=== PATIENT | male | born 1980 | race Caucasian/White ===

== ENCOUNTER 2020-09-13 12:18 | Outpatient (REF) | payer BC, SELFPAY ==
[2020-09-13 12:39] LABS: MANUAL DIFF FLAG NO
[2020-09-13 12:43] LABS: Basophils Percent Auto 0.3 % (0-2); Eosinophils Absolute Auto 0.3 X10*3/uL (0.0-0.4); Eosinophils Percent Auto 2.9 % (0-4); Hematocrit 37.3 % (42-52); Hemoglobin 11.9 g/dl (14.0-18.0); Imm Gran Abs Auto 0.04 X10*3/uL (0.00-0.03); Imm Gran Pct Auto 0.4 % (0.0-0.4); Lymphocytes Absolute Auto 1.1 X10*3/uL (1.2-4.9); Lymphocytes Percent Auto 11.7 % (20-40); Mean Corpuscular HGB Conc 31.9 g/dl (31.0-36.0); Mean Corpuscular Hemoglobin 25.9 pg (27.0-33.0); Mean Corpuscular Volume 81.3 fL (80-98); Mean Platelet Volume 9.5 fL (9.4-12.4); Monocytes Absolute Auto 0.7 X10*3/uL (0.1-1.2); Monocytes Percent Auto 7.4 % (2-11); Neutrophils Absolute Auto 7.1 X10*3/uL (2.0-8.3); Neutrophils Percent Auto 77.3 % (45-73); Platelet Count 355 X10*3/uL (160-400); Red Blood Count 4.59 X10*6/uL (4.60-5.80); Red Cell Distribution Width 13.4 % (11.0-16.0); White Blood Count 9.2 X10*3/uL (4.8-10.8)
[2020-09-13 13:34] LABS: Alanine Aminotransferase 12 U/L (0-40); Albumin Level 3.9 g/dL (3.5-5.0); Alkaline Phosphatase 83 U/L (39-117); Anion Gap 12 (12-20); Aspartate Amino Transferase 12 U/L (5-37); Bilirubin Total 0.4 mg/dL (0.0-1.0); Blood Urea Nitrogen 12 mg/dL (9-16); C Reactive Protein 7.13 mg/dL (< or = 0.50); Calcium 8.5 mg/dL (8.4-10.2); Carbon Dioxide 29 mmol/L (22-29); Chloride 101 mmol/L (96-108); Estimated Glomerular Filt Rate > 60; Glucose Random 91 mg/dL (60-115); Potassium 3.9 mmol/L (3.3-5.1); Sodium 138 mmol/L (135-145); Total Protein 6.4 g/dL (6.5-8.0)
[2020-09-13 13:55] LABS: Ferritin 27 ng/mL (20-250)
== END 2020-09-13 12:19 | disposition home or self-care (01) ==
LOC: HO.LAB 12:18
PROVIDERS: Visit Provider Internal Medicine Gastroenterology
DX: K51.90 Ulcerative colitis, unspecified, without complications (principal); D50.9 Iron deficiency anemia, unspecified
CPT/HCPCS: 36415; 80053; 82306; 82728; 85025; 86140

== ENCOUNTER 2020-09-17 10:33 | Outpatient (REF) | payer BC, SELFPAY ==
[2020-09-17 11:16] LABS: Leukocytes Stool Qualitative FEW: < 2/OIF (NEGATIVE)
[2020-09-17 13:03] LABS: CDIFF Ag Negative (Negative)
[2020-09-17 13:04] LABS: CDIFF Internal ctrl Dots and bkg OK (V); CDiff Toxin Negative (Negative)
[2020-09-22 02:42] LABS: Calprotectin, Fecal 4500 mcg/g
== END 2020-09-17 10:34 | disposition home or self-care (01) ==
LOC: HO.LNP 10:33
PROVIDERS: Visit Provider Internal Medicine Gastroenterology
DX: D50.9 Iron deficiency anemia, unspecified (principal); K51.90 Ulcerative colitis, unspecified, without complications
CPT/HCPCS: 83993; 87045; 87046; 87324; 87449; 89055

== ENCOUNTER → 2020-10-02 13:57 | Outpatient (BNVA) | payer BC, SELFPAY | PROVIDERS: Visit Provider Internal Medicine Gastroenterology ==

== ENCOUNTER 2020-10-06 09:43 | Outpatient (REF) | payer BC, SELFPAY ==
[2020-10-06 10:29] LABS: MANUAL DIFF FLAG NO
[2020-10-06 10:34] LABS: Basophils Percent Auto 0.2 % (0-2); Eosinophils Absolute Auto 0.1 X10*3/uL (0.0-0.4); Eosinophils Percent Auto 0.6 % (0-4); Hematocrit 31.9 % (42-52); Hemoglobin 9.7 g/dl (14.0-18.0); Imm Gran Abs Auto 0.11 X10*3/uL (0.00-0.03); Imm Gran Pct Auto 0.9 % (0.0-0.4); Lymphocytes Absolute Auto 1.1 X10*3/uL (1.2-4.9); Lymphocytes Percent Auto 9.5 % (20-40); Mean Corpuscular HGB Conc 30.4 g/dl (31.0-36.0); Mean Corpuscular Hemoglobin 24.4 pg (27.0-33.0); Mean Corpuscular Volume 80.2 fL (80-98); Mean Platelet Volume 8.7 fL (9.4-12.4); Monocytes Absolute Auto 0.7 X10*3/uL (0.1-1.2); Monocytes Percent Auto 6.2 % (2-11); NRBC Pct Auto 0.2 /100WBC (0.0-0.2); Neutrophils Absolute Auto 9.7 X10*3/uL (2.0-8.3); Neutrophils Percent Auto 82.6 % (45-73); Platelet Count 644 X10*3/uL (160-400); Red Blood Count 3.98 X10*6/uL (4.60-5.80); Red Cell Distribution Width 13.2 % (11.0-16.0); White Blood Count 11.7 X10*3/uL (4.8-10.8)
[2020-10-06 11:01] LABS: Alanine Aminotransferase 51 U/L (0-40); Albumin Level 3.4 g/dL (3.5-5.0); Alkaline Phosphatase 69 U/L (39-117); Anion Gap 14 (12-20); Aspartate Amino Transferase 17 U/L (5-37); Bilirubin Total 0.6 mg/dL (0.0-1.0); Blood Urea Nitrogen 17 mg/dL (9-16); C Reactive Protein 8.64 mg/dL (< or = 0.50); Calcium 8.7 mg/dL (8.4-10.2); Carbon Dioxide 32 mmol/L (22-29); Chloride 94 mmol/L (96-108); Estimated Glomerular Filt Rate > 60; Glucose Random 127 mg/dL (60-115); Lipase 22 U/L (8-78); Potassium 4.4 mmol/L (3.3-5.1); Sodium 136 mmol/L (135-145); Total Protein 6.2 g/dL (6.5-8.0)
[2020-10-06 11:20] LABS: Ferritin 28 ng/mL (20-250)
== END 2020-10-06 09:44 | disposition home or self-care (01) ==
LOC: HO.LAB 09:43
PROVIDERS: Visit Provider Internal Medicine Gastroenterology
DX: K51.90 Ulcerative colitis, unspecified, without complications (principal); R11.10 Vomiting, unspecified; D50.9 Iron deficiency anemia, unspecified
CPT/HCPCS: 36415; 80053; 82728; 83690; 85025; 86140

== ENCOUNTER 2020-10-10 09:34 | Outpatient (REF) | payer BC, SELFPAY ==
--- NOTE | ~2020-10-10 | MR_ITS ---
EXAMINATION: MR ABDOMEN WITHOUT AND WITH CONTRAST MR PELVIS WITHOUT AND WITH CONTRAST CLINICAL INFORMATION: K51.90 - Ulcerative colitis, unspecified, without complication. COMPARISON: CT abdomen and pelvis with contrast 04/19/2016 TECHNIQUE: MR abdomen and MR pelvis are performed without and with use of 7.5 mL intravenous Gadavist gadolinium contrast. Imaging is performed in 3 planes. Patient had 1.5 L of oral Breeza prior to imaging. FINDINGS: LUNG BASES: The visualized lung bases are unremarkable. LIVER, GALLBLADDER, AND BILIARY TREE: The liver is normal in size and smooth in contour. The parenchyma is normal in signal. There is no signal loss on out of phase imaging to suggest hepatic steatosis. There are 2 small cysts present, larger 1.2 cm segment 6 right lobe. There is also a subcentimeter cyst segment 7. There is no enhancing lesion. The gallbladder is unremarkable with no evidence of gallbladder wall thickening, or obvious pericholecystic inflammatory changes. PANCREAS: Unremarkable. SPLEEN: Normal. ADRENAL GLANDS: Normal. KIDNEYS AND URETERS: The kidneys are normal in size and contour and enhance symmetrically. There is no hydronephrosis or perinephric stranding. Incidental punctate cysts well under 1 cm are present left upper and lower pole and right upper pole. GASTROINTESTINAL TRACT: Evaluation limited by respiratory motion artifact. There is no bowel obstruction. Small bowel appears normal in wall thickness and attenuation and with normal enhancement. There is no visible thickening terminal ileum. The appendix is not well visualized. There is no distended appendix or focal inflammatory changes right lower quadrant. No ascites or fluid collection. The colon shows circumferential wall thickening most prominently involving the cecum and proximal ascending colon. Lesser thickening involves the ascending colon, hepatic flexure, and transverse colon. The distal transverse colon and sigmoid flexure and descending colon are nondistended and difficult to assess. There is likely mild wall thickening in these areas. There is some muscular hypertrophy in the region of the sigmoid. Suspect mild circumferential wall thickening at the rectosigmoid. The colon shows normal T2 signal with no wall edema and no edema in the adjacent mesentery. No ascites or fluid collection. No stenotic segment. The colon enhances to greater degree than the small bowel with mild hyperenhancement. No skip areas. There is no vasa recta engorgement or soler sign. ABDOMINAL WALL: No significant hernia is appreciated. LYMPH NODES: No lymphadenopathy. VASCULAR: Unremarkable. PELVIS: No additional findings. OSSEOUS STRUCTURES: Marrow signal normal. MR/MR abdomen wo/w con IMPRESSION: 1. Mild circumferential wall thickening colon, greatest cecum and ascending colon. Mild hyperenhancement following contrast. No T2 signal in the wall or adjacent mesentery. No focal stenotic segment or obstruction. 2. Small bowel and terminal ileum unremarkable. 3. No ascites or fluid collection. 4. Small hepatic cysts 1.2 cm and under 1 cm, respectively. No steatosis appreciated.
== END 2020-10-10 09:35 | disposition home or self-care (01) ==
LOC: HO.MRI 09:34
PROVIDERS: Visit Provider Internal Medicine Gastroenterology
DX: K51.90 Ulcerative colitis, unspecified, without complications (principal)
CPT/HCPCS: 72197; 74183; A9585

== ENCOUNTER 2020-10-17 09:14 | Outpatient (REF) | payer BC, SELFPAY ==
[2020-10-17 10:07] LABS: MANUAL DIFF FLAG NO
[2020-10-17 10:19] LABS: Basophils Percent Auto 0.2 % (0-2); Eosinophils Percent Auto 0.1 % (0-4); Hematocrit 30.3 % (42-52); Hemoglobin 8.8 g/dl (14.0-18.0); Imm Gran Pct Auto 0.8 % (0.0-0.4); Lymphocytes Absolute Auto 1.1 X10*3/uL (1.2-4.9); Lymphocytes Percent Auto 8.7 % (20-40); Mean Corpuscular Hemoglobin 22.9 pg (27.0-33.0); Mean Corpuscular Volume 78.7 fL (80-98); Mean Platelet Volume 8.8 fL (9.4-12.4); Monocytes Absolute Auto 0.7 X10*3/uL (0.1-1.2); Monocytes Percent Auto 5.5 % (2-11); Neutrophils Percent Auto 84.7 % (45-73); Platelet Count 629 X10*3/uL (160-400); Red Blood Count 3.85 X10*6/uL (4.60-5.80); Red Cell Distribution Width 13.7 % (11.0-16.0)
[2020-10-17 10:47] LABS: Alanine Aminotransferase 63 U/L (0-40); Albumin Level 3.3 g/dL (3.5-5.0); Alkaline Phosphatase 70 U/L (39-117); Anion Gap 19 (12-20); Aspartate Amino Transferase 15 U/L (5-37); Bilirubin Total 0.6 mg/dL (0.0-1.0); Blood Urea Nitrogen 13 mg/dL (9-16); C Reactive Protein 7.99 mg/dL (< or = 0.50); Calcium 8.5 mg/dL (8.4-10.2); Carbon Dioxide 28 mmol/L (22-29); Chloride 95 mmol/L (96-108); Estimated Glomerular Filt Rate > 60; Glucose Random 190 mg/dL (60-115); Potassium 4.2 mmol/L (3.3-5.1); Sodium 138 mmol/L (135-145); Total Protein 6.1 g/dL (6.5-8.0)
== END 2020-10-17 09:15 | disposition home or self-care (01) ==
LOC: HO.LAB 09:14
PROVIDERS: Visit Provider Internal Medicine Gastroenterology
DX: K51.90 Ulcerative colitis, unspecified, without complications (principal); D50.9 Iron deficiency anemia, unspecified
CPT/HCPCS: 36415; 80053; 85025; 86140

== ENCOUNTER 2020-10-19 10:38 | Outpatient (REF) | payer BC, SELFPAY ==
[2020-10-19 11:28] LABS: Hematocrit 26.9 % (42-52); Mean Corpuscular HGB Conc 29.7 g/dl (31.0-36.0); Mean Corpuscular Hemoglobin 23.3 pg (27.0-33.0); Mean Corpuscular Volume 78.4 fL (80-98); Mean Platelet Volume 8.9 fL (9.4-12.4); Platelet Count 554 X10*3/uL (160-400); Red Blood Count 3.43 X10*6/uL (4.60-5.80); Red Cell Distribution Width 13.8 % (11.0-16.0); White Blood Count 10.3 X10*3/uL (4.8-10.8)
[2020-10-19 11:58] LABS: Alanine Aminotransferase 58 U/L (0-40); Albumin Level 3.2 g/dL (3.5-5.0); Alkaline Phosphatase 65 U/L (39-117); Anion Gap 14 (12-20); Aspartate Amino Transferase 17 U/L (5-37); Bilirubin Total 0.2 mg/dL (0.0-1.0); Blood Urea Nitrogen 13 mg/dL (9-16); Calcium 8.3 mg/dL (8.4-10.2); Carbon Dioxide 29 mmol/L (22-29); Chloride 96 mmol/L (96-108); Estimated Glomerular Filt Rate > 60; Glucose Random 118 mg/dL (60-115); Iron 16 mcg/dL (45-160); Percent Iron Saturation 6 % (15-50); Potassium 3.9 mmol/L (3.3-5.1); Sodium 135 mmol/L (135-145); Total Iron Binding Capacity 281 mcg/dL (228-428); Total Protein 5.7 g/dL (6.5-8.0); Unsaturated Iron Binding 265 ug/dL
[2020-10-19 12:48] LABS: Band Neutrophils Percent 20 % (3-5); Eosinophils Absolute Manual 0.1 X10*3/UL (0.0-0.8); Eosinophils Percent Manual 1 % (0-4); Lymphocytes Absolute Manual 1.2 X10*3/uL (0.6-4.8); Lymphocytes Percent Manual 12 % (20-40); Monocytes Absolute Manual 0.6 X10*3/uL (0.0-1.2); Monocytes Percent Manual 6 % (2-11); Neutrophils Absolute Manual 8.3 X10*3/uL (2.2-7.9); Neutrophils Percent Manual 61 % (45-73); Platelet Estimate INCREASED (NORMAL)
[2020-10-19 12:49] LABS: RBC Morphology NOTED
[2020-10-19 12:50] LABS: Acanthocytes 1+ (0-2) /OIF; Hypochromasia 1+ (5-14) /OIF; Microcytosis 1+ (5-14) /OIF; Ovalocytes 1+ (5-14) /OIF
[2020-10-19 12:51] LABS: Platelet Morphology Comment NORM; Polychromasia 1+ (0-2) /OIF
[2020-10-21 18:06] LABS: TS Negative Control Passed; TS Panel A 0; TS Panel B 0; TS Positive Control Passed; TSpotTB Negative (SeeBelow)
== END 2020-10-19 10:39 | disposition home or self-care (01) ==
LOC: HO.LAB 10:38
PROVIDERS: Visit Provider Internal Medicine Gastroenterology
DX: K51.90 Ulcerative colitis, unspecified, without complications (principal); D50.9 Iron deficiency anemia, unspecified
CPT/HCPCS: 36415; 80053; 83540; 85007; 85027; 86481

== ENCOUNTER 2020-10-30 12:13 | Outpatient (REF) | payer BC, SELFPAY ==
--- NOTE | 2020-10-30 17:04 | PM.GIPN ---
Subjective Subjective Date of Service: 10/30/20 Interval History: 40 yo male who is here for his initial Remicade infusion. He has an ongoing severely active flare of his ULCERATIVE COLITIS. He is anemic. He is on steroids 20mg BID. He thinks he is feeling somewhat better. His appetite is very good. He is no longer seeing rectal bleeding. Most of his diarrhea is @ night Physical Exam Vital Signs: Vital Signs: TEMP: 100.9, P-114, RESP-18, BP-1O5/62 Const: General: alert and ill appearing Nutritional Appearance: thin (has lost 20-30 pounds) Orientation/consciousness: patient oriented x3 Resp: Effort & Inspection: normal respiratory effort and no cough Cardio: Rate: tachycardic Rhythm: regular rhythm Heart sounds: no murmurs GI: Palpation (GI): Soft to palpation, nontender, no guarding, no masses and No Ascites present Skin: General skin exam: no rashes or lesions noted and pallor Neuro: General: patient oriented x3 Extrem: General: No edema Psych: Mental Status: mental status grossly normal Speech and movement: Normal speech and movement present Thought content: Normal thought content present Objective Data Labs Labs: Reminder Stool ? in 2016 was ?+for E.coli.--State said no. IBD--PROM not c/ either Crohn's or UC Flare with Calprotectin>2000--11/10/2018--not being consistent with Lialda dosing. by 11/2918--full flare.(Weight down 161.8) NOW 10/19/20-H&H: 8.0/26.9--iron sat-6% 10/17/20 CRP--7.99; Albumin 3.3-->3.2 on Limited colo 05/09/16--Moderate to marked active chronic colitis; features not specific to etiology Imaging IMPRESSION: 1. Mild circumferential wall thickening colon, greatest cecum and ascending colon. Mild hyperenhancement following contrast. No T2 signal in the wall or adjacent mesentery. No focal stenotic segment or obstruction. 2. Small bowel and terminal ileum unremarkable.: Radiologist's impression: MRE -- 10/10/20 IMPRESSION: 1. Mild circumferential wall thickening colon, greatest cecum and ascending colon. Mild hyperenhancement following contrast. No T2 signal in the wall or adjacent mesentery. No focal stenotic segment or obstruction. 2. Small bowel and terminal ileum unremarkable. Progress Note: A&P Assessment and plan (1) Ulcerative colitis: Status: Acute Assessment and Plan: Patient is here for first REMICADE INFUSION. He is experiencing moderate to severe flare of what has been carried as Ulcerative colitis. His FECAL CALPROTECTIN came back >4500. He has been on oral steriods and mesalamine with persistent symptoms. Original bleeding has lessened but he is still having [id number] daily or @ night. He has been out of work due to weakness. I have counselled him on the high activity of his disease. Ideally, he should be OOW for at least 4 additional weeks. He is to get back to me on decision re:FMLA, etc. Will discuss with when he goes home. (2) Iron deficiency anemia: Status: Acute Assessment and Plan: Patient says he is eating better. He is not seeing bleeding he is taking oral iron once daily with ? no GI upset. Exercise tolerance slightly decreased. Restin tachycardia. Will check labs next week or Thursday to reassess where we are @ management bose. Time Spent With Patient Time: Total time spent is greater than 50% in coordination of care (as documented) at patient's floor/unit and/or counseling patient:40 min Time with patient: 25 - 35 minutes
== END 2020-10-30 12:14 | disposition home or self-care (01) ==
LOC: HO.MDS 12:13
PROVIDERS: Visit Provider Internal Medicine Gastroenterology
DX: K51.90 Ulcerative colitis, unspecified, without complications (principal)
CPT/HCPCS: 96413; 96415; J1745

== ENCOUNTER 2020-11-06 12:26 | Outpatient (REF) | payer BC, SELFPAY ==
[2020-11-06 12:57] LABS: MANUAL DIFF FLAG NO
[2020-11-06 13:06] LABS: Basophils Percent Auto 0.2 % (0-2); Eosinophils Percent Auto 0.2 % (0-4); Hemoglobin 8.4 g/dl (14.0-18.0); Imm Gran Abs Auto 0.28 X10*3/uL (0.00-0.03); Imm Gran Pct Auto 2.2 % (0.0-0.4); Lymphocytes Absolute Auto 1.2 X10*3/uL (1.2-4.9); Lymphocytes Percent Auto 9.3 % (20-40); Mean Corpuscular Hemoglobin 21.8 pg (27.0-33.0); Mean Corpuscular Volume 77.7 fL (80-98); Monocytes Absolute Auto 0.9 X10*3/uL (0.1-1.2); Monocytes Percent Auto 7.3 % (2-11); NRBC Pct Auto 0.3 /100WBC (0.0-0.2); Neutrophils Absolute Auto 10.4 X10*3/uL (2.0-8.3); Neutrophils Percent Auto 80.8 % (45-73); Platelet Count 559 X10*3/uL (160-400); Red Blood Count 3.86 X10*6/uL (4.60-5.80); Red Cell Distribution Width 15.9 % (11.0-16.0); White Blood Count 12.9 X10*3/uL (4.8-10.8)
[2020-11-06 13:16] LABS: Carbon Dioxide 27 mmol/L (22-29); Chloride 98 mmol/L (96-108); Potassium 4.5 mmol/L (3.3-5.1); Sodium 137 mmol/L (135-145)
[2020-11-06 13:17] LABS: Alanine Aminotransferase 33 U/L (0-40); Albumin Level 3.6 g/dL (3.5-5.0); Alkaline Phosphatase 70 U/L (39-117); Anion Gap 17 (12-20); Aspartate Amino Transferase 11 U/L (5-37); Bilirubin Total 0.4 mg/dL (0.0-1.0); Blood Urea Nitrogen 18 mg/dL (9-16); C Reactive Protein 1.62 mg/dL (< or = 0.50); Estimated Glomerular Filt Rate > 60; Glucose Random 89 mg/dL (60-115); Total Protein 6.1 g/dL (6.5-8.0)
== END 2020-11-06 12:27 | disposition home or self-care (01) ==
LOC: HO.LAB 12:26
PROVIDERS: Visit Provider Internal Medicine Gastroenterology
DX: K51.90 Ulcerative colitis, unspecified, without complications (principal)
CPT/HCPCS: 36415; 80053; 85025; 86140

== ENCOUNTER 2020-11-13 07:49 | Outpatient (REF) | payer BC, SELFPAY ==
--- NOTE | 2020-11-13 10:26 | PM.GIPN ---
Subjective Subjective Date of Service: 11/13/20 Interval History: Here for Infusion--Flare, Ulcerative Colitis. 40 yo male who is here for his second Remicade infusion. He has still been taking Prednisone 20mg BID. He is begining to feel stronger. Diet is good. He has better exercise tolerance. He says his has noted his color to be improved. He is not having any bleeding. Physical Exam Vital Signs: Vital Signs: BP: 122/79; P-96; R-18; Temp-98.1 Const: General: cooperative and alert; No acute distress Nutritional Appearance: overweight Resp: Effort & Inspection: normal respiratory effort and able to speak in complete sentences Auscultation: clear to auscultation bilaterally Cardio: Rate: tachycardic Rhythm: regular rhythm GI: Palpation (GI): Soft to palpation, nontender and Hernia present (left inguinal) Auscultation: normal bowel sounds Skin: General skin exam: no rashes or lesions noted Objective Data Labs Labs: CRP--10/17: 7.99 NOW 1.62 AFTER INFUSION #1 ALBUMIN-3.2--NO2-3.6 HCT: 26.9--NOW 30.0 Progress Note: A&P Assessment and plan (1) Ulcerative colitis: Status: Acute Assessment and Plan: Patient seems to be responding to start of biologic. Will taper steroids: Prednisone: 10mg 1 twice daily. repeat labs in 2 weeks. Patient is concerned about having his hernia evaluated will review and have him make appt with General Surgery Time Spent With Patient Time: Total time spent is greater than 50% in coordination of care (as documented) at patient's floor/unit and/or counseling patient: 20 MINUTES Time with patient: 15 - 24 minutes
== END 2020-11-13 07:50 | disposition home or self-care (01) ==
LOC: HO.MDS 07:49
PROVIDERS: Visit Provider Internal Medicine Gastroenterology
DX: K51.90 Ulcerative colitis, unspecified, without complications (principal)
CPT/HCPCS: 96413; 96415; J1745

== ENCOUNTER → 2020-12-10 08:40 | Outpatient (BNVA) | payer BC, SELFPAY | PROVIDERS: Visit Provider Surgery ==

== ENCOUNTER 2020-12-11 10:47 | Outpatient (REF) | payer BC, SELFPAY ==
[2020-12-11 11:13] LABS: MANUAL DIFF FLAG NO
[2020-12-11 11:16] LABS: Basophils Percent Auto 0.1 % (0-2); Eosinophils Percent Auto 0.4 % (0-4); Hematocrit 29.7 % (42-52); Hemoglobin 8.2 g/dl (14.0-18.0); Imm Gran Abs Auto 0.08 X10*3/uL (0.00-0.03); Lymphocytes Absolute Auto 0.9 X10*3/uL (1.2-4.9); Lymphocytes Percent Auto 10.7 % (20-40); Mean Corpuscular HGB Conc 27.6 g/dl (31.0-36.0); Mean Corpuscular Hemoglobin 21.9 pg (27.0-33.0); Mean Corpuscular Volume 79.4 fL (80-98); Mean Platelet Volume 8.5 fL (9.4-12.4); Monocytes Absolute Auto 0.6 X10*3/uL (0.1-1.2); Monocytes Percent Auto 7.4 % (2-11); NRBC Pct Auto 0.2 /100WBC (0.0-0.2); Neutrophils Absolute Auto 6.8 X10*3/uL (2.0-8.3); Neutrophils Percent Auto 80.4 % (45-73); Platelet Count 384 X10*3/uL (160-400); Red Blood Count 3.74 X10*6/uL (4.60-5.80); Red Cell Distribution Width 19.3 % (11.0-16.0); White Blood Count 8.4 X10*3/uL (4.8-10.8)
[2020-12-11 11:53] LABS: C Reactive Protein 1.96 mg/dL (< or = 0.50)
[2020-12-11 11:54] LABS: Alanine Aminotransferase 15 U/L (0-40); Albumin Level 3.9 g/dL (3.5-5.0); Alkaline Phosphatase 69 U/L (39-117); Anion Gap 12 (12-20); Aspartate Amino Transferase 9 U/L (5-37); Bilirubin Total 0.4 mg/dL (0.0-1.0); Blood Urea Nitrogen 16 mg/dL (9-16); Calcium 8.7 mg/dL (8.4-10.2); Carbon Dioxide 28 mmol/L (22-29); Chloride 102 mmol/L (96-108); Estimated Glomerular Filt Rate > 60; Glucose Random 94 mg/dL (60-115); Potassium 4.4 mmol/L (3.3-5.1); Sodium 138 mmol/L (135-145); Total Protein 6.7 g/dL (6.5-8.0)
== END 2020-12-11 10:48 | disposition home or self-care (01) ==
LOC: HO.MDS 10:47
PROVIDERS: Visit Provider Internal Medicine Gastroenterology
DX: K51.90 Ulcerative colitis, unspecified, without complications (principal)
CPT/HCPCS: 36415; 80053; 85025; 86140; 96413; 96415; J1745

== ENCOUNTER 2021-01-14 09:45 | Outpatient (REF) | payer BC, SELFPAY ==
[2021-01-14 10:07] LABS: MANUAL DIFF FLAG NO
[2021-01-14 10:15] LABS: Basophils Percent Auto 0.7 % (0-2); Eosinophils Absolute Auto 0.3 X10*3/uL (0.0-0.4); Eosinophils Percent Auto 5.1 % (0-4); Hematocrit 29.4 % (42-52); Hemoglobin 8.4 g/dl (14.0-18.0); Imm Gran Abs Auto 0.02 X10*3/uL (0.00-0.03); Imm Gran Pct Auto 0.3 % (0.0-0.4); Lymphocytes Absolute Auto 1.1 X10*3/uL (1.2-4.9); Lymphocytes Percent Auto 18.5 % (20-40); Mean Corpuscular HGB Conc 28.6 g/dl (31.0-36.0); Mean Corpuscular Hemoglobin 23.1 pg (27.0-33.0); Mean Corpuscular Volume 80.8 fL (80-98); Mean Platelet Volume 9.5 fL (9.4-12.4); Monocytes Absolute Auto 0.8 X10*3/uL (0.1-1.2); Monocytes Percent Auto 13.8 % (2-11); Neutrophils Absolute Auto 3.6 X10*3/uL (2.0-8.3); Neutrophils Percent Auto 61.6 % (45-73); Platelet Count 382 X10*3/uL (160-400); Red Blood Count 3.64 X10*6/uL (4.60-5.80); Red Cell Distribution Width 16.6 % (11.0-16.0); White Blood Count 5.9 X10*3/uL (4.8-10.8)
[2021-01-14 10:38] LABS: Alanine Aminotransferase < 6 U/L (0-40); Albumin Level 3.5 g/dL (3.5-5.0); Alkaline Phosphatase 68 U/L (39-117); Anion Gap 11 (12-20); Aspartate Amino Transferase 11 U/L (5-37); Bilirubin Total 0.2 mg/dL (0.0-1.0); Blood Urea Nitrogen 10 mg/dL (9-16); C Reactive Protein 2.48 mg/dL (< or = 0.50); Calcium 8.5 mg/dL (8.4-10.2); Carbon Dioxide 26 mmol/L (22-29); Chloride 105 mmol/L (96-108); Estimated Glomerular Filt Rate > 60; Glucose Random 88 mg/dL (60-115); Potassium 3.9 mmol/L (3.3-5.1); Sodium 138 mmol/L (135-145); Total Protein 5.8 g/dL (6.5-8.0)
== END 2021-01-14 09:46 | disposition home or self-care (01) ==
LOC: HO.LAB 09:45
PROVIDERS: Visit Provider Internal Medicine Gastroenterology
DX: K51.90 Ulcerative colitis, unspecified, without complications (principal); D50.9 Iron deficiency anemia, unspecified
CPT/HCPCS: 36415; 80053; 85025; 86140

== ENCOUNTER → 2021-01-21 12:53 | Outpatient (BNVA) | payer BC, SELFPAY | PROVIDERS: Visit Provider Internal Medicine Gastroenterology ==

== ENCOUNTER 2021-02-05 08:55 | Outpatient (REF) | payer BC, SELFPAY | END 2021-02-05 08:56 | disposition home or self-care (01) | LOC: HO.MDS 08:55 | PROVIDERS: Visit Provider Internal Medicine Gastroenterology | DX: K51.90 Ulcerative colitis, unspecified, without complications (principal) | CPT/HCPCS: 96413; 96415; J1745 ==

== ENCOUNTER 2021-04-02 08:45 | Outpatient (REF) | payer BC, SELFPAY | END 2021-04-02 08:46 | disposition home or self-care (01) | LOC: HO.MDS 08:45 | PROVIDERS: Visit Provider Internal Medicine Gastroenterology | DX: K51.90 Ulcerative colitis, unspecified, without complications (principal) | CPT/HCPCS: 96413; 96415; J1745 ==

== ENCOUNTER 2021-05-28 08:54 | Outpatient (REF) | payer BC, SELFPAY | END 2021-05-28 08:55 | disposition home or self-care (01) | LOC: HO.MDS 08:54 | PROVIDERS: Visit Provider Internal Medicine Gastroenterology | DX: K51.90 Ulcerative colitis, unspecified, without complications (principal) | CPT/HCPCS: 96413; 96415; J1745 ==

== ENCOUNTER → 2021-06-04 08:53 | Outpatient (BNVA) | payer BC, SELFPAY | PROVIDERS: Visit Provider Surgery ==

== ENCOUNTER 2021-06-26 08:29 | Day surgery (SDC) | payer BC, SELFPAY ==
[2021-06-17 14:43] VITALS: BMI 23.7
--- NOTE | 2021-06-25 08:57 | HO.ANESPROP2 ---
Documented by User: Analy Manzano NP 06/25/21 08:59 HPI - Anesthesia Eval Consult details Narrative: 41yo M for Left Hernia Repair Inguinal with mesh PMFSH Active Problems Active Problems: All Active Problems (Updated 06/17/21 @ 14:42 by Barbara Lawson RN) Left inguinal hernia (Acute) Low vitamin D level (Acute) Iron deficiency anemia (Acute) Ulcerative colitis (Acute) Past Medical History Medical History COVID-19 vaccine series completed Iron deficiency anemia Low vitamin D level Ulcerative colitis Family History Family History Father HTN (hypertension) Mother No problems noted. Paternal Grandfather No problems noted. Paternal Grandmother No problems noted. Maternal Grandfather Gastric ulcer Maternal Grandmother Emphysema of lung Surgical History Surgical History H/O colonoscopy Hx of right knee surgery Social History Social History Household Members: Spouse Are you a primary home health care worker to a significant other at home: No Do you presently have visiting nurse or other home services: No Patient Tobacco Use Status: Never used Tobacco Use of substances other than those prescribed or required for medical reasons: No Have you been hit, kicked, punched, or otherwise hurt by someone within the past year? If so, by whom?: No Are you DNR?: No Advance Directives: No Advance Directives Information Provided: Yes (informational brochure mailed) Advance Directives on File: No Recently lost weight without trying: No Eating poorly because of decreased appetite: No Nutrition Risks: No Nutritional Risk Poor oral hygiene: No Meds Allergies Allergy/AdvReac Type Severity Reaction Status Date / Time No Known Allergies Allergy Verified 01/21/21 13:13 [No Known Allergies*] Home Medications Medication Instructions Recorded Confirmed Last Taken Type mesalamine 1.2 gram tablet,delayed 1.2 g PO QID 06/17/21 06/17/21 Unknown History release Exam Exam Date and Time: June 25, 2021 0857 Height,Weight and Vital Signs: Height 6 ft 2 in Weight 83.915 kg Pertinent Lab Results Pertinent Lab Results: Laboratory Tests 01/14/21 09:55 Sodium 138 Potassium 3.9 Chloride 105 Carbon Dioxide 26 BUN 10 Creatinine 0.81 Laboratory Tests 01/14/21 09:55 WBC 5.9 Hgb 8.4 L Hct 29.4 L Plt Count 382 Assessment and Plan Assessment Anesthesia Assessment: Chart Reviewed Documented by User: Carlie Hendricks MD 06/26/21 09:59 PMFSH Past Medical History Medical History COVID-19 vaccine series completed Iron deficiency anemia Low vitamin D level Ulcerative colitis Family History Family History Father HTN (hypertension) Mother No problems noted. Paternal Grandfather No problems noted. Paternal Grandmother No problems noted. Maternal Grandfather Gastric ulcer Maternal Grandmother Emphysema of lung Surgical History Surgical History H/O colonoscopy Hx of right knee surgery History of Problems with Anesthesia: No Social History Social History Household Members: Spouse Are you a primary home health care worker to a significant other at home: No Do you presently have visiting nurse or other home services: No Patient Tobacco Use Status: Never used Tobacco Use of substances other than those prescribed or required for medical reasons: No Have you been hit, kicked, punched, or otherwise hurt by someone within the past year? If so, by whom?: No Are you DNR?: No Advance Directives: No Advance Directives Information Provided: Yes (informational brochure mailed) Advance Directives on File: No Recently lost weight without trying: No Eating poorly because of decreased appetite: No Nutrition Risks: No Nutritional Risk Poor oral hygiene: No Meds Allergies Allergy/AdvReac Type Severity Reaction Status Date / Time No Known Allergies Allergy Verified 01/21/21 13:13 [No Known Allergies*] Home Medications Medication Instructions Recorded Confirmed Last Taken Type mesalamine 1.2 gram tablet,delayed 1.2 g PO QID 06/17/21 06/17/21 Unknown History release Exam Airway Mallampati Class: II TM Dist: >3cm Neck ROM: Full Loose/Missing/Broken Teeth: No Heart: RRR Lungs: CTA Assessment and Plan Assessment Anesthesia Assessment: Anesthesia Plan Discussed Final Anesthetic Review History of Problems with Anesthesia: No NPO: Yes ASA Class: II Final Preanesthetic Review: Meds/Allgs Chart Reviewed, Consent Obtained/Reviewed and Anes Risks/Benef Reviewed Patient Risk: Low Procedure Risk: Low Anesthetic Plan Anesthetic Plan: GA Disposition: Standard PACU
[2021-06-26] VITALS (7 sets, daily range): BP systolic 109–127; BP diastolic 55–69; PULSE 73–84; RESP 16–18; TEMP 36.4–36.5; O2SAT 98–99
[2021-06-26 09:25] LABS: Hematocrit 36.9 % (42.0-52.0); Hemoglobin 11.3 g/dl (14.0-18.0); Mean Corpuscular HGB Conc 30.6 g/dl (31.0-36.0); Mean Corpuscular Volume 78.5 fL (80.0-98.0); Mean Platelet Volume 9.7 fL (9.4-12.4); Platelet Count 263 X10*3/uL (160-400); Red Cell Distribution Width 14.2 % (11.0-16.0); White Blood Count 7.4 X10*3/uL (4.8-10.8)
[2021-06-26] MEDS: Lactated Ringers 1,000 ML 100 ML IVCONT (09:40)
--- NOTE | 2021-06-26 09:53 | MHC.SHP ---
Pre-Procedural Eval Section A Date of Service: 06/26/21 The patient is an INPATIENT: No Changes since office visit: Yes Patient answered all questions; No Cold of Flu in the past 2 weeks, No New Medical Problems and No Changes in Medication The History & Physical has been completed within 30 days and I have reviewed it.: Yes Section B Chief Complaint: unilateral inguinal hernia Allergies: Allergies Allergy/AdvReac Type Severity Reaction Status Date / Time No Known Allergies Allergy Verified 01/21/21 13:13 [No Known Allergies*] Plan Diagnosis/Plan: Unchanged I have reviewed the history and physical and performed a pertinent physical examination on my patient. No changes have occurred unless specified.
--- NOTE | 2021-06-26 11:36 | W.PM.OPN ---
Operative Note Operative Note Date of Service: 06/26/21 Narrative: Preoperative diagnosis: Left inguinal hernia Postoperative diagnosis: same Procedure: repair of left inguinal hernia with mesh Surgeon: Bryce Mclian MD [employer] Telephone Clerk: none Anesthesia: general LMA Indications for procedure: 41-year-old male patient presenting with a reducible lump in the left groin which increases in size with lifting and decreases with light pressure. On examination patient has a reducible left inguinal hernia. There is no discomfort with palpation. Operative findings: Large indirect left inguinal hernia with an inflamed sac. Specimen: Hernia sac Estimated blood loss: 10 mL Complications: none Procedure details: patient was brought to the OR and placed in a supine position. After administering general anesthesia the patient's abdomen was prepped with ChloraPrep and draped in a sterile fashion. A surgical time-out was called the consent confirmed. Patient received preoperative antibiotics and Venodyne boots were in place. Local anesthesia consisting of 0.5% Sensorcaine was infiltrated over the left inguinal ligament. Incision was then made with a scalpel carried out through subcutaneous tissue, past Domenic's fascia, up to the external oblique aponeurosis. Local anesthesia was infiltrated below the aponeurosis and the aponeurosis was incised with a scalpel. This was then widened with the Metzenbaum scissors. The spermatic cord was then dissected free from the surrounding inguinal canal. This was then retracted using a [place] drain. No direct hernia could be identified. Fibers of the cremasteric muscle were then . A thick hernia sac was the dissected free from the surrounding cord contents. The sac was from the vas deferens and the vessels. Sac was dissected proximal to the internal ring. The sac was then opened and all contents reduced. Sac was found to be thickened and slightly hemorrhagic. Sac was then ligated at the internal ring and excised. This was sent as a specimen to pathology. Attention was then directed to the direct space which was incised between clamps. Preperitoneal space was then entered. This was then widened using an open Ray-Sridhar sponge . A large PHS mesh was then obtained. The circular underlay was deployed and the preperitoneal space. The overlay was then secured to the pubic tubercle, conjoined tendon, and shelving edge of the inguinal ligament using a 0 Polysorb suture. A slit was made in the mesh at the level of the internal ring and the mesh wrapped around the spermatic cord. This was then secured to the shelving edge using a 0 Polysorb suture. The ring was tight enough to allow the passage of the tip of the index finger. Wounds were then irrigated with saline solution and suctioned dry. An oblique aponeurosis was then closed using a running 2 0 Polysorb suture. Domenic's fascia and dermis reapproximated using interrupted 3-0 Polysorb sutures. Skin was closed using a running subcuticular 4-0 Polysorb suture. Steri-Strips 2 x 2 gauze and Tegaderm were then applied. The patient tolerated the procedure well. Sponge, instrument, and needle counts reported as correct. The patient was transferred to PACU in stable condition.
[2021-06-26] MEDS: Acetaminophen 325 MG TABLET 650 MG PO (12:03)
== END 2021-06-26 13:20 | disposition home or self-care (01) ==
PROVIDERS: Nurse Practitioner; Visit Provider Surgery
PROC: (CPT 49505; principal; 2021-06-26 10:10)
DX: K40.90 Unilateral inguinal hernia, without obstruction or gangrene, not specified as recurrent (principal); K51.90 Ulcerative colitis, unspecified, without complications; D50.9 Iron deficiency anemia, unspecified; E55.9 Vitamin D deficiency, unspecified; Z79.899 Other long term (current) drug therapy; Z87.891 Personal history of nicotine dependence
CPT/HCPCS: 49505; 36415; 85027; 88302; C1781; J0690; J1100; J1885; J2250; J2405; J3010

== ENCOUNTER → 2021-07-04 13:34 | Outpatient (BNVA) | payer BC, SELFPAY | PROVIDERS: Visit Provider Surgery ==

== ENCOUNTER 2021-07-23 08:43 | Outpatient (REF) | payer BC, SELFPAY | END 2021-07-23 08:44 | disposition home or self-care (01) | LOC: HO.MDS 08:43 | PROVIDERS: Visit Provider Internal Medicine Gastroenterology | DX: K51.90 Ulcerative colitis, unspecified, without complications (principal) | CPT/HCPCS: 96413; 96415; J1745 ==

== ENCOUNTER → 2021-08-06 11:22 | Outpatient (BNVA) | payer BC, SELFPAY | PROVIDERS: Visit Provider Surgery ==

== ENCOUNTER 2021-10-31 09:07 | Outpatient (REF) | payer BC, SELFPAY ==
[2021-10-31 09:33] LABS: MANUAL DIFF FLAG NO
[2021-10-31 09:44] LABS: Basophils Percent Auto 0.3 % (0-2); Eosinophils Absolute Auto 0.1 X10*3/uL (0.0-0.4); Hematocrit 36.8 % (42.0-52.0); Imm Gran Abs Auto 0.01 X10*3/uL (0.00-0.03); Imm Gran Pct Auto 0.1 % (0.0-0.4); Lymphocytes Absolute Auto 0.9 X10*3/uL (1.2-4.9); Lymphocytes Percent Auto 12.6 % (20-40); Mean Corpuscular HGB Conc 29.9 g/dl (31.0-36.0); Mean Corpuscular Hemoglobin 23.9 pg (27.0-33.0); Mean Corpuscular Volume 79.8 fL (80.0-98.0); Mean Platelet Volume 9.5 fL (9.4-12.4); Monocytes Absolute Auto 0.4 X10*3/uL (0.1-1.2); Monocytes Percent Auto 5.6 % (2-11); Neutrophils Absolute Auto 5.8 x10*3/uL (2.0-8.3); Neutrophils Percent Auto 80.4 % (45-73); Platelet Count 305 X10*3/uL (160-400); Red Blood Count 4.61 X10*6/uL (4.60-5.80); Red Cell Distribution Width 13.4 % (11.0-16.0); White Blood Count 7.2 X10*3/uL (4.8-10.8)
[2021-10-31 10:26] LABS: Alanine Aminotransferase 13 U/L (0-40); Alkaline Phosphatase 82 U/L (39-117); Aspartate Amino Transferase 15 U/L (5-37); Bilirubin Direct < 0.2 mg/dL (0.0-0.5); Bilirubin Total 0.4 mg/dL (0.0-1.0); Estimated Glomerular Filt Rate > 60; Total Protein 6.4 g/dL (6.5-8.0)
[2021-10-31 10:40] LABS: Ferritin 11 ng/mL (20-250); Vitamin D 25-OH Total 36.5 ng/mL (>30)
[2021-10-31 10:49] LABS: HBS Num1 > 1000.00 mIU/mL (0-7.99); HBsAGNum1 0.16 S/CO (0.00-0.99); Hepatitis B Surface Antigen Negative (Negative); ~Hepatitis B Surface Antibody REACTIVE (Nonreactive)
[2021-11-01 08:46] LABS: Hepatitis A Antibody IgG Nonreactive (Nonreactive); ~Hepatitis A Antibody IgG 0.36 S/CO (0.00-0.99)
[2021-11-04 12:52] LABS: Immunoglobulin A 134 mg/dL (47-310)
[2021-11-05 08:16] LABS: Transglutaminase Ab IgG <1.0 U/mL; Transglutaminase IgA <1.0 U/mL
== END 2021-10-31 09:08 | disposition home or self-care (01) ==
LOC: HO.LAB 09:07
PROVIDERS: Visit Provider Internal Medicine Gastroenterology
DX: K51.90 Ulcerative colitis, unspecified, without complications (principal); D50.9 Iron deficiency anemia, unspecified
CPT/HCPCS: 36415; 80076; 82306; 82565; 82728; 82784; 85025; 86140; 86364; 86706; 86708; 87340

== ENCOUNTER → 2021-11-14 12:22 | Outpatient (BNVA) | payer BC, SELFPAY | PROVIDERS: Visit Provider Internal Medicine Gastroenterology | DX: K51.90 Ulcerative colitis, unspecified, without complications (principal); D50.9 Iron deficiency anemia, unspecified; R79.89 Other specified abnormal findings of blood chemistry | CPT/HCPCS: 90471; 90632 ==

== ENCOUNTER 2021-11-20 08:59 | Outpatient (REF) | payer BC, SELFPAY | END 2021-11-20 09:00 | disposition home or self-care (01) | LOC: HO.MDS 08:59 | PROVIDERS: Visit Provider Internal Medicine Gastroenterology | DX: K51.90 Ulcerative colitis, unspecified, without complications (principal) | CPT/HCPCS: 96413; 96415; J1745 ==

== ENCOUNTER 2022-01-29 10:10 | Outpatient (REF) | payer BC, SELFPAY ==
[2022-01-29 10:28] LABS: MANUAL DIFF FLAG NO
[2022-01-29 10:42] LABS: Basophils Percent Auto 0.2 % (0-2); Eosinophils Absolute Auto 0.1 X10*3/uL (0.0-0.4); Eosinophils Percent Auto 0.9 % (0-4); Hematocrit 37.1 % (42.0-52.0); Hemoglobin 11.4 g/dl (14.0-18.0); Imm Gran Abs Auto 0.01 X10*3/uL (0.00-0.03); Imm Gran Pct Auto 0.2 % (0.0-0.4); Lymphocytes Absolute Auto 0.6 X10*3/uL (1.2-4.9); Lymphocytes Percent Auto 11.9 % (20-40); Mean Corpuscular HGB Conc 30.7 g/dl (31.0-36.0); Mean Corpuscular Hemoglobin 24.8 pg (27.0-33.0); Mean Corpuscular Volume 80.8 fL (80.0-98.0); Mean Platelet Volume 10.3 fL (9.4-12.4); Monocytes Absolute Auto 0.2 X10*3/uL (0.1-1.2); Monocytes Percent Auto 3.9 % (2-11); Neutrophils Absolute Auto 4.5 x10*3/uL (2.0-8.3); Neutrophils Percent Auto 82.9 % (45-73); Platelet Count 220 X10*3/uL (160-400); Red Blood Count 4.59 X10*6/uL (4.60-5.80); Red Cell Distribution Width 15.3 % (11.0-16.0); White Blood Count 5.4 X10*3/uL (4.8-10.8)
[2022-01-29 11:16] LABS: Alanine Aminotransferase 15 U/L (0-40); Albumin Level 4.1 g/dL (3.5-5.0); Alkaline Phosphatase 78 U/L (39-117); Aspartate Amino Transferase 19 U/L (5-37); Bilirubin Direct 0.2 mg/dL (0.0-0.5); Bilirubin Total 0.4 mg/dL (0.0-1.0); C Reactive Protein 1.66 mg/dL (< or = 0.50); Total Protein 6.5 g/dL (6.5-8.0)
[2022-01-29 11:41] LABS: Ferritin 22 ng/mL (20-250)
[2022-02-01 00:42] LABS: TS Negative Control Passed; TS Panel A 0; TS Panel B 0; TS Positive Control Passed; TSpotTB Negative (Negative)
== END 2022-01-29 10:11 | disposition home or self-care (01) ==
LOC: HO.LAB 10:10
PROVIDERS: Visit Provider Internal Medicine Gastroenterology
DX: Z11.1 Encounter for screening for respiratory tuberculosis (principal); K51.90 Ulcerative colitis, unspecified, without complications
CPT/HCPCS: 36415; 80076; 82728; 85025; 86140; 86481

== ENCOUNTER → 2022-08-15 08:20 | Outpatient (BNVA) | payer BC, SELFPAY | PROVIDERS: Visit Provider Internal Medicine Gastroenterology | DX: Z23 Encounter for immunization (principal); R79.89 Other specified abnormal findings of blood chemistry; D50.9 Iron deficiency anemia, unspecified; K51.90 Ulcerative colitis, unspecified, without complications | CPT/HCPCS: 90471; 90632 ==

== ENCOUNTER 2022-08-19 07:34 | Outpatient (REF) | payer BC, SELFPAY ==
[2022-08-19 10:23] LABS: CDiff Gene PCR NEGATIVE (Negative)
== END 2022-08-19 07:35 | disposition home or self-care (01) ==
LOC: HO.LNP 07:34
PROVIDERS: Visit Provider Internal Medicine Gastroenterology
DX: K51.90 Ulcerative colitis, unspecified, without complications (principal)
CPT/HCPCS: 87493

== ENCOUNTER 2022-08-25 14:47 | Outpatient (REF) | payer BC, SELFPAY ==
[2022-08-25 15:02] LABS: MANUAL DIFF FLAG NO
[2022-08-25 15:15] LABS: Basophils Percent Auto 0.1 % (0-2); Hematocrit 29.2 % (42.0-52.0); Hemoglobin 8.7 g/dl (14.0-18.0); Imm Gran Abs Auto 0.05 X10*3/uL (0.00-0.03); Imm Gran Pct Auto 0.4 % (0.0-0.4); Lymphocytes Absolute Auto 0.9 X10*3/uL (1.2-4.9); Lymphocytes Percent Auto 7.7 % (20-40); Mean Corpuscular HGB Conc 29.8 g/dl (31.0-36.0); Mean Corpuscular Hemoglobin 21.2 pg (27.0-33.0); Mean Platelet Volume 9.8 fL (9.4-12.4); Monocytes Absolute Auto 0.5 X10*3/uL (0.1-1.2); Monocytes Percent Auto 4.3 % (2-11); Neutrophils Percent Auto 87.5 % (45-73); Platelet Count 489 X10*3/uL (160-400); Red Blood Count 4.11 X10*6/uL (4.60-5.80); Red Cell Distribution Width 16.4 % (11.0-16.0); White Blood Count 11.4 X10*3/uL (4.8-10.8)
[2022-08-25 16:36] LABS: Alanine Aminotransferase 14 U/L (0-40); Albumin Level 3.9 g/dL (3.5-5.0); Alkaline Phosphatase 64 U/L (39-117); Anion Gap 16 (12-20); Aspartate Amino Transferase 14 U/L (5-37); Bilirubin Total 0.3 mg/dL (0.0-1.0); Blood Urea Nitrogen 25 mg/dL (9-16); C Reactive Protein 1.89 mg/dL (< or = 0.50); Calcium 9.2 mg/dL (8.4-10.2); Carbon Dioxide 25 mmol/L (22-29); Chloride 100 mmol/L (96-108); Estimated Glomerular Filt Rate > 60; Glucose Random 118 mg/dL (60-115); Potassium 4.8 mmol/L (3.3-5.1); Sodium 136 mmol/L (135-145); Total Protein 6.5 g/dL (6.5-8.0)
[2022-08-25 16:53] LABS: Folate 13.5 ng/mL (> or = 4.0); Vitamin B12 561 pg/mL (200-900); Vitamin D 25-OH Total 60.6 ng/mL (>30)
== END 2022-08-25 14:48 | disposition home or self-care (01) ==
LOC: HO.LAB 14:47
PROVIDERS: Visit Provider Internal Medicine Gastroenterology
DX: D50.9 Iron deficiency anemia, unspecified (principal); K51.90 Ulcerative colitis, unspecified, without complications
CPT/HCPCS: 80053; 80230; 82306; 82607; 82746; 83520; 85025; 86140

== ENCOUNTER 2022-10-20 14:37 | Outpatient (REF) | payer BC, SELFPAY ==
[2022-10-20 14:48] LABS: MANUAL DIFF FLAG NO
[2022-10-20 15:37] LABS: Basophils Percent Auto 0.1 % (0-2); Eosinophils Percent Auto 0.4 % (0-4); Hemoglobin 10.1 g/dl (14.0-18.0); Imm Gran Abs Auto 0.12 X10*3/uL (0.00-0.03); Imm Gran Pct Auto 1.6 % (0.0-0.4); Lymphocytes Absolute Auto 1.1 X10*3/uL (1.2-4.9); Lymphocytes Percent Auto 14.9 % (20-40); Mean Corpuscular HGB Conc 29.7 g/dl (31.0-36.0); Mean Corpuscular Hemoglobin 24.7 pg (27.0-33.0); Mean Corpuscular Volume 83.1 fL (80.0-98.0); Mean Platelet Volume 9.8 fL (9.4-12.4); Monocytes Absolute Auto 0.5 X10*3/uL (0.1-1.2); Monocytes Percent Auto 6.9 % (2-11); Neutrophils Absolute Auto 5.7 x10*3/uL (2.0-8.3); Neutrophils Percent Auto 76.1 % (45-73); Platelet Count 345 X10*3/uL (160-400); Red Blood Count 4.09 X10*6/uL (4.60-5.80); Red Cell Distribution Width 21.4 % (11.0-16.0); White Blood Count 7.5 X10*3/uL (4.8-10.8)
[2022-10-20 16:14] LABS: C Reactive Protein 3.81 mg/dL (< or = 0.50)
[2022-10-20 16:32] LABS: Ferritin 25 ng/mL (20-250)
[2022-10-23 12:49] LABS: TS Negative Control Passed; TS Panel A 0; TS Panel B 0; TS Positive Control Passed; TSpotTB Negative (Negative)
== END 2022-10-20 14:38 | disposition home or self-care (01) ==
LOC: HO.LAB 14:37
PROVIDERS: Visit Provider Internal Medicine Gastroenterology
DX: D50.9 Iron deficiency anemia, unspecified (principal); K51.90 Ulcerative colitis, unspecified, without complications
CPT/HCPCS: 36415; 82728; 85025; 86140; 86481

== ENCOUNTER 2022-11-11 08:04 | Outpatient (REF) | payer BC, SELFPAY | END 2022-11-11 08:05 | disposition home or self-care (01) | LOC: HO.MDS 08:04 | PROVIDERS: Visit Provider Internal Medicine Gastroenterology | DX: K51.90 Ulcerative colitis, unspecified, without complications (principal) | CPT/HCPCS: 96365; J3358 ==

== ENCOUNTER → 2022-11-17 12:49 | Outpatient (BNVA) | payer BC, SELFPAY | PROVIDERS: Visit Provider Internal Medicine Gastroenterology | DX: Z13.89 Encounter for screening for other disorder (principal) ==

== ENCOUNTER 2023-01-06 07:54 | Outpatient (REF) | payer BC, SELFPAY ==
[2023-01-06 08:37] LABS: MANUAL DIFF FLAG NO
[2023-01-06 08:42] LABS: Basophils Percent Auto 0.5 % (0-2); Eosinophils Absolute Auto 0.1 X10*3/uL (0.0-0.4); Eosinophils Percent Auto 1.5 % (0-4); Hematocrit 31.1 % (42.0-52.0); Imm Gran Abs Auto 0.01 X10*3/uL (0.00-0.03); Imm Gran Pct Auto 0.2 % (0.0-0.4); Mean Corpuscular HGB Conc 28.9 g/dl (31.0-36.0); Mean Corpuscular Volume 75.9 fL (80.0-98.0); Mean Platelet Volume 10.8 fL (9.4-12.4); Monocytes Absolute Auto 0.3 X10*3/uL (0.1-1.2); Monocytes Percent Auto 5.9 % (2-11); Neutrophils Percent Auto 72.9 % (45-73); Platelet Count 320 X10*3/uL (160-400); Red Cell Distribution Width 16.6 % (11.0-16.0); White Blood Count 5.5 X10*3/uL (4.8-10.8)
[2023-01-06 09:02] LABS: Alanine Aminotransferase 12 U/L (0-40); Alkaline Phosphatase 71 U/L (39-117); Anion Gap 11 (12-20); Aspartate Amino Transferase 16 U/L (5-37); Bilirubin Total 0.4 mg/dL (0.0-1.0); Blood Urea Nitrogen 17 mg/dL (9-16); C Reactive Protein 1.97 mg/dL (< or = 0.50); Calcium 9.2 mg/dL (8.4-10.2); Carbon Dioxide 26 mmol/L (22-29); Chloride 104 mmol/L (96-108); Estimated Glomerular Filt Rate > 60; Glucose Random 100 mg/dL (60-115); Potassium 3.6 mmol/L (3.3-5.1); Sodium 137 mmol/L (135-145); Total Protein 6.8 g/dL (6.5-8.0)
[2023-01-08 23:24] LABS: TS Negative Control Passed; TS Panel A 0; TS Panel B 0; TS Positive Control Passed; TSpotTB Negative (Negative)
== END 2023-01-06 07:55 | disposition home or self-care (01) ==
LOC: HO.MDS 07:54
PROVIDERS: Visit Provider Internal Medicine Gastroenterology
DX: K51.90 Ulcerative colitis, unspecified, without complications (principal)
CPT/HCPCS: 36415; 80053; 85025; 86140; 86481; 96374; J3357

== ENCOUNTER 2023-02-26 09:56 | Outpatient (AMB) | payer BC, SELFPAY ==
--- NOTE | 2023-02-26 09:59 | A.OFFVIS_ITS ---
Intake Vital Signs 02/26/23 10:19 Height 6 ft 2 in Weight 185 lb BMI 23.7 BP 108/59 L Blood Pressure Location Lt brachial Position Sitting Pulse 86 Intake Visit Reasons: 3 month fu Intake Note: Patient follow up for Anemia and vit D deficiency. Patient denies any GI issues. Supervisor Costuming Required: No Accompanied by: Self / Same As Patient Allergies No Known Allergies [No Known Allergies*] Allergy (Verified 02/26/23 10:11) Medication List - Last Reconciled 02/26/23 by Gunner Magallon MD cholecalciferol (vitamin D3) 2,000 units PO DAILY 30 days ferrous sulfate 325 mg PO DAILY mesalamine 1.2 grams PO QID prednisone 10 mg PO DAILY 4 weeks ustekinumab (Stelara) mg IV HPI 3 month fu HPI Details GI clinic visit for this 42-year-old male for follow-up of ulcerative colitis and anemia. Patient has been followed by Dr. Matos in the GI clinic since 03/2016? When he presented with new onset bloody diarrhea. ?initial stool culture was positive for toxigenic E coli.? ? Stool studies were negative for C diff toxin He was treated with intermittent antibiotic therapy with persistent diarrhea. ?IBD serologies were negative. ?TPMT enzyme activity was normal IMAGING STUDIES: 10/10/20 ABD PELVIC MRI SHOWED: 1. Mild circumferential wall thickening colon, greatest cecum and ascending colon. Mild hyperenhancement following contrast. No T2 signal in the wall or adjacent mesentery. No focal stenotic segment or obstruction. 2. Small bowel and terminal ileum unremarkable. 3. No ascites or fluid collection. 4. Small hepatic cysts 1.2 cm and under 1 cm, respectively. No steatosis appreciated. ?IBD SUMMARY YEAR OF DIAGNOSIS:? 2015 DISEASE EXTENT:? Pancolitis LAST COLONOSCOPY FINDINGS:? 04/2016? severely active ulcerative colitis from 12 cms to 45 to 50 cms Bx showed: COLONIC MUCOSA WITH A MODERATE TO MARKED ACTIVE CHRONIC COLITIS. THE FEATURES, ALTHOUGH NOT SPECIFIC TO ETIOLOGY, DO RAISE THE POSSIBILITY OF INFLAMMATORY BOWEL DISEASE. NEXT COLON DUE: 2023 EXTRAINTESTINAL MANIFESTATIONS: Oral thrush when he was sick which has resolved Denies eye pain or skin rash LBP which he attributes to work GI SURGERY:? None PAST TREATMENTS:? Mesalamine 1.2 grams four time a day, Prednisone CURRENT THERAPY: ? Remicade 5 mg/kg every 8 weeks stopped due to high antibody levels and 4/18/23 Given loading dose of stelara. Scheduled for maintainence injection on 01/06/23 VACCINATIONS: Flu shot:? has not had a flu shot in a while Hep A/B serology /vaccination:? not vaccinated - I will check antibodies TB screen: negative TODAY'S VISIT: Has 2-3 BMs a day without blood. Abd pain has improved and he has gained 9 lbs over the past 3-4 months. Next injection due on 03/08/23 PAST VISIT HE states that on to thursday he had headaches and he is not sure if it is from the stelara. He states he also had blood in stool thursday and thursday. Noted a MCKNIGHT to Thursday - mostly in the am Has some diarrhea and noted some blood mixed with the stool at the end of a BMs. Having 4 loose to watery BMs a day. Noted lower abd pain at site of hernia surgery yeseterday and non today. Started taking mesalamine on 11/15/22 Having a mini flare up since . Having lower abd pain and having 4+ BMs a day (baseline BM were 3 to 4 per day) Notes abd cramps before a BM and resolves after he has a BM. Had blood one time a few weeks ago - mostly liquid stools. Few episodes of night sweats - no fever or chills. Denies taking any antibiotics recently Last remicade infusion on Jul 02 and next due on Aug 28. Lab results reviewed with the patient. Last Remicade infusion was in 07/16. 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 Sometimes formed and sometime runy without blood Abd pain once in a while. Became very sick in aug, 2020 and lost a lot of weight. Started on remicade and doing better and is gaining some wt back Patient denies symptoms of heartburn, dysphagia, nausea, vomiting, Mild indigestion depneding on the diet. Intermittent abdominal pain related to the hernia. Has 3-4 soft to loose BMs a day - noted a small amount of blood yesterday. Patient denies major cardiac or pulmonary problems, loud snoring or sleep apnea Denies problems with anesthesia in the past. Denies being on chronic anticoagulation. Patient denies known family history of? Paternal uncle has UC, colon polyps, colon cancer or other GI malignancies. 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 No?children PFSH Medical History COVID-19 vaccine series completed Iron deficiency anemia Low vitamin D level Ulcerative colitis Surgical History H/O colonoscopy Hx of right knee surgery Family History Father HTN (hypertension) Mother No problems noted. Paternal Grandfather No problems noted. Paternal Grandmother No problems noted. Maternal Grandfather Gastric ulcer Maternal Grandmother Emphysema of lung Social History Household Members: Spouse Are you a primary wound care specialist to a significant other at home: No Do you presently have visiting nurse or other home services: No Patient Tobacco Use Status: Never used Tobacco Review of Systems Const All systems reviewed & are unremarkable except as noted in HPI and below Physical Exam Vital Signs: Last Vital Signs Pulse 86 02/26/23 10:19 BP 108/59 L 02/26/23 10:19 BMI result Body Mass Index 23.7 Const General: no acute distress Nutritional Appearance: average body habitus Orientation/consciousness: patient oriented x3 Limitations: no limitations HEENT Head: Yes normal to inspection Ears: hearing grossly normal bilaterally Mouth: Normal oral and palatal mucosa present Eyes Sclerae: sclerae normal Pupils: Equal, round and reactive pupils present Neck Neck: Yes normal visual inspection Chest Chest palpation & inspection: normal inspection of the chest Resp Effort & Inspection: normal respiratory effort Auscultation: clear to auscultation bilaterally Cardio Palpation: normal PMI Rate: regular rate Rhythm: regular rhythm Heart sounds: S1 normal heart sound present, S2 normal heart sound present and no murmurs GI Palpation (GI): Soft to palpation, nontender and No hepatosplenomegaly present Auscultation: normal bowel sounds Rectal Exam - Male: Yes deferred Skin General skin exam: no rashes or lesions noted Neuro General: patient oriented x3, gait normal and moves all extremities Cranial nerves: Yes Equal, round and reactive pupils present Psych Appearance: grossly normal Mental Status: mental status grossly normal Assessment & Plan Assessment & Plan (1) Low vitamin D level: Code(s): R79.89 - Other specified abnormal findings of blood chemistry (2) Iron deficiency anemia: Comment: taking iron Code(s): D50.9 - Iron deficiency anemia, unspecified (3) Ulcerative colitis: Comment: taking mesalamine Code(s): K51.90 - Ulcerative colitis, unspecified, without complications Plan 42 YM with UC (diagnosed in 2016) complicated by ELEANOR and Vitamin D deficiency.? 04/2016? colonoscopy showed severely active ulcerative colitis from 12 cms to 45 to 50 cm. Pt had persistent symptoms despite high dose mesalamine resulting in wt loss of 30 lbs. ? 10/30/20 He was started on Remicade with? improvement in symptoms with slow weight gain and improvement in anemia. Patient was advised to continue treatment with Remicade 5 milligram/kilogram every 8 weeks.? 08/15/22 Pt seen urgently for a mild flare. Has been on Remicade infusion every 8 weeks since 10/30/20 (Getting Remicade infusions at home? for the past few months) Check FU labs,? C Diff toxin - infliximab drug level and anti drug antibodies on 08/25 22 (before his next infliximab infusion). Aug 2022 Infliximab level was 1.3 mcg/ml and Infliximab ADA elevated at 100 AU associated with increased risk of infusion reactions and reduced duration of response Pt was was advised to stop infliximab and started on a prednisone taper starting at 40 mg daily x 4 week Pt started on Stelara and received 390 mg for induction on 11/11/22. He will continue Stelara at 90 mg every 8 weeks and next dose is scheduled on 01/06/23 Pt was advised to resume taking mesalamine and will taper after he is started on maintenance dose of Stelara. 02/26/23 Doing well on Stelara 90 mg every 8 weeks with wt gain and resolution of diarrhea. From UTD:? Infliximab: >=5 microg/mL for luminal disease. Some but not all studies have reported that higher infliximab trough levels were associated with healing of perianal fistula related to Crohn disease, and a trough level of >=0 microg/mL has been suggested for patients with fistulizing disease Follow-up appointment in 4 months. Orders: Orders Complete Blood Count Auto Diff Today K51.90 - Ulcerative colitis, unspecified, without complications Ferritin Today K51.90 - Ulcerative colitis, unspecified, without complications C Reactive Protein Today K51.90 - Ulcerative colitis, unspecified, without complications Medications: Discontinued prednisone Take 4 tablets daily for a week Take 3 tablets daily for a week Take 2 tablets daily for a week Take 1 tablets daily for a week Discontinued Reason: Patient Completed Course 10 mg PO DAILY 4 weeks 70 tabs 0RF Coding Level of Care Code Est Pt Level 4 (06328) Diagnoses Low vitamin D level R79.89 Iron deficiency anemia D50.9 Ulcerative colitis K51.90 Time Spent (min) 21
[2023-02-26 10:19] VITALS: BP 108/59; PULSE 86; BMI 23.7
== END 2023-02-26 10:36 | disposition home or self-care (01) ==
PROVIDERS: Visit Provider Internal Medicine Gastroenterology
DX: R79.89 Other specified abnormal findings of blood chemistry (principal); D50.9 Iron deficiency anemia, unspecified; K51.90 Ulcerative colitis, unspecified, without complications
CPT/HCPCS: 99214

== ENCOUNTER → 2023-02-26 09:56 | Outpatient (BNVA) | payer BC, SELFPAY | PROVIDERS: Visit Provider Internal Medicine Gastroenterology ==

== ENCOUNTER 2023-11-17 15:04 | Outpatient (REF) | payer BC, SELFPAY ==
[2023-11-17 15:14] LABS: MANUAL DIFF FLAG NO
[2023-11-17 15:27] LABS: Basophils Percent Auto 0.7 % (0-2); Eosinophils Absolute Auto 0.1 X10*3/uL (0.0-0.4); Eosinophils Percent Auto 2.8 % (0-4); Hematocrit 40.1 % (42.0-52.0); Hemoglobin 13.2 g/dl (14.0-18.0); Imm Gran Abs Auto 0.01 X10*3/uL (0.00-0.03); Imm Gran Pct Auto 0.2 % (0.0-0.4); Lymphocytes Absolute Auto 1.2 X10*3/uL (1.2-4.9); Mean Corpuscular HGB Conc 32.9 g/dl (31.0-36.0); Mean Corpuscular Hemoglobin 26.5 pg (27.0-33.0); Mean Corpuscular Volume 80.5 fL (80.0-98.0); Mean Platelet Volume 10.2 fL (9.4-12.4); Monocytes Absolute Auto 0.3 X10*3/uL (0.1-1.2); Neutrophils Absolute Auto 2.7 x10*3/uL (2.0-8.3); Neutrophils Percent Auto 62.3 % (45-73); Platelet Count 231 X10*3/uL (160-400); Red Blood Count 4.98 X10*6/uL (4.60-5.80); Red Cell Distribution Width 13.7 % (11.0-16.0); White Blood Count 4.3 X10*3/uL (4.8-10.8)
[2023-11-17 16:11] LABS: Alanine Aminotransferase 19 U/L (0-40); Albumin Level 4.3 g/dL (3.5-5.0); Alkaline Phosphatase 79 U/L (39-117); Aspartate Amino Transferase 23 U/L (5-37); Bilirubin Direct 0.2 mg/dL (0.0-0.5); Bilirubin Total 0.4 mg/dL (0.0-1.0); C Reactive Protein 3.64 mg/dL (< or = 0.50); Estimated Glomerular Filt Rate > 60; Total Protein 7.3 g/dL (6.5-8.0)
[2023-11-17 16:29] LABS: Ferritin 55 ng/mL (20-250)
== END 2023-11-17 15:05 | disposition home or self-care (01) ==
LOC: HO.LAB 15:04
PROVIDERS: Visit Provider Internal Medicine Gastroenterology
DX: K51.90 Ulcerative colitis, unspecified, without complications (principal)
CPT/HCPCS: 36415; 80076; 82565; 82728; 85025; 86140

== ENCOUNTER 2023-11-26 09:50 | Outpatient (AMB) | payer BC, SELFPAY ==
--- NOTE | 2023-11-26 10:07 | A.OFFVIS_ITS ---
Vital Signs 11/26/23 10:08 Height 6 ft 2 in Weight 185 lb BMI 23.7 BP 112/56 L Blood Pressure Location Lt brachial Position Sitting Pulse 73 Intake Visit Reasons: follow up Intake Note: Patient follow up for Anemia and lab results Patient cc: fatigue on and off. Denies any other GI issues. Records Supervisor Required: No Accompanied by: Self / Same As Patient Allergies No Known Allergies [No Known Allergies*] Allergy (Verified 11/26/23 10:06) Medication List - Last Reconciled 11/26/23 by uGnner Magallon MD cholecalciferol (vitamin D3) 2,000 units PO DAILY 30 days ferrous sulfate 325 mg PO DAILY mesalamine 1.2 grams PO QID 90 days ustekinumab (Stelara) mg IV ustekinumab 90 mg subcut Q8W 8 weeks HPI HPI follow up: Details: GI clinic visit for this 43-year-old male for follow-up of ulcerative colitis and anemia. Patient has been followed by Dr. Matos in the GI clinic since 03/2016? When he presented with new onset bloody diarrhea. ?initial stool culture was positive for toxigenic E coli.? ? Stool studies were negative for C diff toxin He was treated with intermittent antibiotic therapy with persistent diarrhea. ?IBD serologies were negative. TPMT enzyme activity was normal IMAGING STUDIES: 10/10/20 ABD PELVIC MRI SHOWED: 1. Mild circumferential wall thickening colon, greatest cecum and ascending colon. Mild hyperenhancement following contrast. No T2 signal in the wall or adjacent mesentery. No focal stenotic segment or obstruction. 2. Small bowel and terminal ileum unremarkable. 3. No ascites or fluid collection. 4. Small hepatic cysts 1.2 cm and under 1 cm, respectively. No steatosis appreciated. ?IBD SUMMARY YEAR OF DIAGNOSIS:? 2015 DISEASE EXTENT:? Pancolitis LAST COLONOSCOPY FINDINGS:? 04/2016? severely active ulcerative colitis from 12 cms to 45 to 50 cms Bx showed: COLONIC MUCOSA WITH A MODERATE TO MARKED ACTIVE CHRONIC COLITIS. THE FEATURES, ALTHOUGH NOT SPECIFIC TO ETIOLOGY, DO RAISE THE POSSIBILITY OF INFLAMMATORY BOWEL DISEASE. NEXT COLON DUE: 2023 EXTRAINTESTINAL MANIFESTATIONS: Oral thrush when he was sick which has resolved Denies eye pain or skin rash LBP which he attributes to work GI SURGERY:? None PAST TREATMENTS:? Mesalamine 1.2 grams four time a day, Prednisone CURRENT THERAPY: ? Remicade 5 mg/kg every 8 weeks stopped due to high antibody levels and 11/11/22 Given loading dose of stelara. Scheduled for maintainence injection on 01/06/23 VACCINATIONS: Flu shot:? has not had a flu shot in a while Hep A/B serology /vaccination:? not vaccinated - (antibodies checked which showed immunity to Hep B and non-immune to Hep A) TB screen: negative TODAY'S VISIT: Patient cc: fatigue on and off. Denies any other GI issues. Stelara injections are working well Taking them every 8 weeks Has 2 BMs a day without blood. PAST VISIT Has 2-3 BMs a day without blood. Abd pain has improved and he has gained 9 lbs over the past 3-4 months. Next injection due on 03/08/23 HE states that on to thursday he had headaches and he is not sure if it is from the stelara. He states he also had blood in stool thursday and thursday. Noted a MCKNIGHT to Thursday - mostly in the am Has some diarrhea and noted some blood mixed with the stool at the end of a BMs. Having 4 loose to watery BMs a day. Noted lower abd pain at site of hernia surgery yeseterday and non today. Started taking mesalamine on 11/15/22 Having a mini flare up since . Having lower abd pain and having 4+ BMs a day (baseline BM were 3 to 4 per day) Notes abd cramps before a BM and resolves after he has a BM. Had blood one time a few weeks ago - mostly liquid stools. Few episodes of night sweats - no fever or chills. Denies taking any antibiotics recently Last remicade infusion on Jul 02 and next due on Aug 28. Lab results reviewed with the patient. Last Remicade infusion was in 07/16. 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 Sometimes formed and sometime runy without blood Abd pain once in a while. Became very sick in aug, 2020 and lost a lot of weight. Started on remicade and doing better and is gaining some wt back Patient denies symptoms of heartburn, dysphagia, nausea, vomiting, Mild indigestion depneding on the diet. Intermittent abdominal pain related to the hernia. Has 3-4 soft to loose BMs a day - noted a small amount of blood yesterday. Patient denies major cardiac or pulmonary problems, loud snoring or sleep apnea Denies problems with anesthesia in the past. Denies being on chronic anticoagulation. Patient denies known family history of? Paternal uncle has UC, colon polyps, colon cancer or other GI malignancies. 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 Paternal Grandfather No problems noted. Paternal Grandmother No problems noted. Maternal Grandfather Gastric ulcer Maternal Grandmother Emphysema of lung Social History Household Members: Spouse Are you a primary healthcare corporate account director to a significant other at home: No Do you presently have visiting nurse or other home services: No Patient Tobacco Use Status: Never used Tobacco Review of Systems Const All systems reviewed & are unremarkable except as noted in HPI and below Physical Exam Vital Signs: Last Vital Signs Pulse 73 11/26/23 10:08 BP 112/56 L 11/26/23 10:08 BMI result Body Mass Index 23.7 Const General: no acute distress Nutritional Appearance: average body habitus Orientation/consciousness: patient oriented x3 Limitations: no limitations HEENT Head: Yes normal to inspection Ears: hearing grossly normal bilaterally Mouth: Normal oral and palatal mucosa present Eyes Sclerae: sclerae normal Pupils: Equal, round and reactive pupils present Neck Neck: Yes normal visual inspection Chest Chest palpation & inspection: normal inspection of the chest Resp Effort & Inspection: normal respiratory effort Auscultation: clear to auscultation bilaterally Cardio Palpation: normal PMI Rate: regular rate Rhythm: regular rhythm Heart sounds: S1 normal heart sound present, S2 normal heart sound present and no murmurs GI Palpation (GI): Soft to palpation, nontender and No hepatosplenomegaly present Auscultation: normal bowel sounds Rectal Exam - Male: Yes deferred Skin General skin exam: no rashes or lesions noted Neuro General: patient oriented x3, gait normal and moves all extremities Cranial nerves: Yes Equal, round and reactive pupils present Psych Appearance: grossly normal Mental Status: mental status grossly normal Assessment & Plan Assessment & Plan (1) Ulcerative colitis: Comment: taking mesalamine Code(s): K51.90 - Ulcerative colitis, unspecified, without complications Category: Medical (2) Iron deficiency anemia: Comment: taking iron Code(s): D50.9 - Iron deficiency anemia, unspecified Category: Medical (3) Low vitamin D level: Code(s): R79.89 - Other specified abnormal findings of blood chemistry Category: Medical Plan 43 YM with UC (diagnosed in 2016) complicated by ELEANOR and Vitamin D deficiency.? 04/2016? colonoscopy showed severely active ulcerative colitis from 12 cms to 45 to 50 cm. Pt had persistent symptoms despite high dose mesalamine resulting in wt loss of 30 lbs. ? 10/30/20 He was started on Remicade with? improvement in symptoms with slow weight gain and improvement in anemia. Patient was advised to continue treatment with Remicade 5 milligram/kilogram every 8 weeks.? 08/15/22 Pt seen urgently for a mild flare. Has been on Remicade infusion every 8 weeks since 10/30/20 (Getting Remicade infusions at home? for the past few months) Check FU labs,? C Diff toxin - infliximab drug level and anti drug antibodies on 08/25 22 (before his next infliximab infusion). Aug 2022 Infliximab level was 1.3 mcg/ml and Infliximab ADA elevated at 100 AU associated with increased risk of infusion reactions and reduced duration of response Pt was was advised to stop infliximab and started on a prednisone taper starting at 40 mg daily x 4 week Pt started on Stelara and received 390 mg for induction on 11/11/22. He will continue Stelara at 90 mg every 8 weeks and next dose is scheduled on 01/06/23 Pt was advised to resume taking mesalamine and will taper after he is started on maintenance dose of Stelara. 02/26/23 Doing well on Stelara 90 mg every 8 weeks with wt gain and resolution of diarrhea. From UTD:? Infliximab: >=5 microg/mL for luminal disease. Some but not all studies have reported that higher infliximab trough levels were associated with healing of perianal fistula related to Crohn disease, and a trough level of >=0 microg/mL has been suggested for patients with fistulizing disease 11/26/23 Stelara injections are working well Taking them every 8 weeks Has 2 BMs a day without blood. Pt advised to taper off mesalamine by 1 tablet every week over 4 weeks Schedule colonoscopy for IBD surveillance - scheduled 05/20/24. Follow-up appointment in 5 month Orders: Orders Calprotectin, Fecal 11/26/23 Coding Level of Care Code Est Pt Level 4 (53020) Diagnoses Ulcerative colitis K51.90 Iron deficiency anemia D50.9 Low vitamin D level R79.89 Time Spent (min) 22
[2023-11-26 10:08] VITALS: BP 112/56; PULSE 73; BMI 23.7
== END 2023-11-26 11:11 | disposition home or self-care (01) ==
PROVIDERS: Visit Provider Internal Medicine Gastroenterology
DX: K51.90 Ulcerative colitis, unspecified, without complications (principal); D50.9 Iron deficiency anemia, unspecified; R79.89 Other specified abnormal findings of blood chemistry
CPT/HCPCS: 99214

== ENCOUNTER → 2023-11-26 09:50 | Outpatient (BNVA) | payer BC, SELFPAY | PROVIDERS: Visit Provider Internal Medicine Gastroenterology ==

== ENCOUNTER 2024-05-20 07:07 | Day surgery (SDC) | payer BC, SELFPAY ==
[2024-05-20 07:52] VITALS: BP 117/72; PULSE 68; RESP 12; TEMP 36.2; O2SAT 97; BMI 23.1
[2024-05-20] MEDS: Lactated Ringers 1,000 ML 50 ML IVCONT (08:01)
--- NOTE | 2024-05-20 08:06 | MHC.SHP ---
Pre-Procedural Eval Section A - 24 Hr Update-Section A only Date of Service: 05/20/24 The patient is an INPATIENT: No The patient has been examined within 24 hours of the surgical procedure. The History & Physical has been completed within 30 days and I have reviewed it.: No Section B - Complete if H&P > 30 days Chief Complaint: Ulcerative colitis surveillance, Relevant Family History (Specify if Yes): No Relevant Social History: None Present Medications: see Short Stay Collaborative assessment Medical History: Significant History (Iron deficiency anemia Low vitamin D level Ulcerative colitis) History of Previous Operations: Relevant previous surgery/procedure and date(s) (Hx of right knee surgery H/O colonoscopy) Allergies: Allergies Allergy/AdvReac Type Severity Reaction Status Date / Time No Known Allergies Allergy Verified 11/26/23 10:06 [No Known Allergies*] Review of Systems Sugical H&P ROS: Negative: Constitution, Cardiovascular, Respiratory and Gastrointestinal Exam Surgical H&P Exam: Normal: Heart, Normal: Lungs, Normal: Extremities and Normal: Abdomen Plan Diagnosis/Plan: Unchanged I have reviewed the history and physical and performed a pertinent physical examination on my patient. No changes have occurred unless specified. Time Spent With Patient Time: Total time managing care of this patient today ____ minutes.
--- NOTE | 2024-05-20 08:38 | HO.ANESPROP2 ---
[facility] Active Problems Active Problems: All Active Problems (Updated 06/17/21 @ 14:42 by Barbara Lawson RN) Left inguinal hernia (Acute) Low vitamin D level (Acute) Iron deficiency anemia (Acute) Ulcerative colitis (Acute) Past Medical History Medical History COVID-19 vaccine series completed Iron deficiency anemia Low vitamin D level Ulcerative colitis Family History Family History Father HTN (hypertension) Mother No problems noted. Paternal Grandfather No problems noted. Paternal Grandmother No problems noted. Maternal Grandfather Gastric ulcer Maternal Grandmother Emphysema of lung Family history of problems with anesthesia: No Surgical History Surgical History Hx of right knee surgery H/O colonoscopy History of Problems with Anesthesia: No Social History Social History Household Members: Spouse Are you a primary healthcare applications analyst to a significant other at home: No Do you presently have visiting nurse or other home services: No Patient Tobacco Use Status: Never used Tobacco Use of substances other than those prescribed or required for medical reasons: No Have you been hit, kicked, punched, or otherwise hurt by someone within the past year? If so, by whom?: No Are you DNR?: No Advance Directives: No Advance Directives Information Provided: Yes Recently lost weight without trying: No Nutrition Risks: No Nutritional Risk Poor oral hygiene: No Meds Allergies Allergy/AdvReac Type Severity Reaction Status Date / Time No Known Allergies Allergy Verified 11/26/23 10:06 [No Known Allergies*] Active Medications: Current Medications Lactated Ringer's (Lr) 1,000 mls @ 50 mls/hr IVCONT .Q20H ED Last Admin: 05/20/24 08:01 Dose: 50 mls/hr Home Medications ?Medication ?Instructions ?Recorded ?Confirmed ?Last Taken ?Type ustekinumab 130 mg/26 mL mg IV 11/17/22 11/26/23 Unknown History intravenous solution (Stelara) Exam Height,Weight and Vital Signs: Height 6 ft 2 in Weight 81.647 kg Last Vital Signs Temp 97.2 F 05/20/24 07:52 Pulse 68 05/20/24 07:52 Resp 12 05/20/24 07:52 BP 117/72 05/20/24 07:52 Pulse Ox 97 05/20/24 07:52 O2 Del Method Room Air 05/20/24 07:52 Airway Mallampati Class: I TM Dist: >3cm Neck ROM: Full Heart: rrr Lungs: cta Assessment and Plan Assessment Anesthesia Assessment: Anesthesia Plan Discussed and Chart Reviewed Final Anesthetic Review Family History of Problems with Anesthesia: No History of Problems with Anesthesia: No NPO: Yes ASA Class: II Final Preanesthetic Review: No Changes in Pt Med Stat, Meds/Allgs Chart Reviewed and Consent Obtained/Reviewed Patient Risk: Low Procedure Risk: Low Anesthetic Plan Anesthetic Plan: MAC: Disposition: Standard PACU
[2024-05-20 09:16] VITALS: BP 98/51; PULSE 68; RESP 16; TEMP 36.1; O2SAT 96
--- NOTE | 2024-05-20 09:16 | HO.OPN-COLON ---
Colonoscopy Operative Note Operative Note Date of Service: 05/20/24 Narrative: COLONOSCOPY TILL CECUM WITH BIOPSIES, SNARE POLYPECTOMY HEMOCLIP PLACEMENT AND CHROMOENDOSCOPY Pre-op diagnosis: Colon cancer screening, UC surveillance. Post-op diagnosis:? Colon polyps, inactive UC, hemorrhoids Endoscopist:? Gunner Magallon MD Anesthesia:?MAC Consent: Indications for the procedure and potential complications of bleeding, perforation, reaction to medications and missed diagnosis were discussed with the patient and informed consent was obtained. Instrument: Olympus CF H 190 L variable stiffness adult colonoscope Monitoring: Vital signs and clinical assessment, intermittent blood pressure monitoring, continuous EKG monitoring, Pulse oximetry and Carbon Dioxide monitoring were done throughout the procedure. Please see anesthesia flowsheet. Colon withdrawl time was 25 minutes. Procedure: The patient was placed in the left lateral decubitis position and pre-procedure medications were administered. After a digital rectal examination of the ano-rectum, the video colonoscope was inserted into the rectum and advanced through the colon to the cecum. The colonoscope was slowly withdrawn in a retrograde panoramic fashion and the colon mucosa was carefully examined including a retroflexed view of the rectum. Findings and interventions are described below. Procedure Difficulty: without difficulty Findings: Terminal Ileum: Distal 5 to 7 cms was examined and appeared normal Cecum: Patchy erythema with a few 1 cms areas of erythema and aphthoid ulcers Ascending Colon: A 7-8 mm sessile polyp -removed with a cold snare and polyp was not retrieved. Patchy erythema with a few 1 cms areas of erythema and aphthoid ulcers Transverse Colon: Inactive UC throughout the colon with patchy erythema, telangiectasias and pseudopolyps Descending Colon: Two 10-12 mm sessile, ulcerated polyps at 30 cms - removed with a hot snare. One of the polypectomy sites was closed with 1 hemoclip. Inactive UC throughout the colon with patchy erythema, telangiectasias and pseudopolyps Sigmoid Colon: Inactive UC throughout the colon with patchy erythema, telangiectasias and pseudopolyps Rectum: Normal Ano-rectum: Small internal hemorrhoids and hypertrophied anal papillae Colon preparation: Excellent, after some irrigation. [employer] Bowel Preparation Scale Right colon; 3 Transverse colon: 3 Left colon; 3 (0 = Unprepared colon segment with mucosa not seen due to solid stool that cannot be cleared. 1 = Portion of mucosa of the colon segment seen, but other areas of the colon segment not well seen due to staining, residual stool and/or opaque liquid. 2 = Minor amount of residual staining, small fragments of stool and/or opaque liquid, but mucosa of colon segment seen well. 3 = Entire mucosa of colon segment seen well with no residual staining, small fragments of stool or opaque liquid) Impression and Post Procedure Diagnosis: Colonoscopy Findings: One small and two medium sized polyps were removed Small hemorrhoids on retroflexed exam. Plan: Pt has a FU appointment on 06/02/[address] Magallon Repeat Colonoscopy in 2 years if polyps are adenomatous and no dysplasia detected on colon biopsies. Above findings were reviewed with the patient and relevant handouts were given and the discharge area. BIOPSIES SHOWED: A. Terminal ileum, biopsy: Small intestinal and ileocolonic mucosa within normal limits. B. Cecum, biopsy: Chronic, mildly active, colitis. C. Colon, ascending, biopsy: Colonic mucosa with crypt disarray; otherwise within normal limits. D. Colon, transverse, biopsy: Colonic mucosa with patchy hyperplastic changes; otherwise within normal limits. E. Colon, descending, biopsy: Focally active colitis. F. Colon, descending, polypectomies: Inflammatory polyps. G. Colon, sigmoid, biopsy: Chronic inactive colitis. H. Rectum, biopsy: Rectal mucosa within normal limits. Comment: No dysplasia is identified. Letter sent advising repeat colon in 2 years and pt placed on colonoscopy recall list.
[2024-05-20 09:33] VITALS: BP 109/66; PULSE 66; RESP 18; TEMP 36.1; O2SAT 99
== END 2024-05-20 09:56 | disposition home or self-care (01) ==
PROVIDERS: Visit Provider Internal Medicine Gastroenterology
PROC: 0DJD8ZZ Inspection of Lower Intestinal Tract, Via Natural or Artificial Opening Endoscopic (ICD-10-PCS; CPT 45378; principal; 2024-05-20 08:30)
DX: Z12.11 Encounter for screening for malignant neoplasm of colon (principal); K51.40 Inflammatory polyps of colon without complications; K63.5 Polyp of colon; K62.89 Other specified diseases of anus and rectum; K64.8 Other hemorrhoids; D50.9 Iron deficiency anemia, unspecified; K51.90 Ulcerative colitis, unspecified, without complications; E55.9 Vitamin D deficiency, unspecified; Z79.899 Other long term (current) drug therapy
CPT/HCPCS: 45385; 45380; 88305; J2003; J2704; Q9968

== ENCOUNTER → 2024-05-20 07:07 | Outpatient (BNV) | payer BC, SELFPAY | PROVIDERS: Visit Provider Internal Medicine Gastroenterology | DX: Z12.11 Encounter for screening for malignant neoplasm of colon (principal); K63.5 Polyp of colon; K51.90 Ulcerative colitis, unspecified, without complications; K55.8 Other vascular disorders of intestine | CPT/HCPCS: 45380; 45385 ==

== ENCOUNTER 2024-06-02 09:06 | Outpatient (AMB) | payer BC, SELFPAY ==
--- NOTE | 2024-06-02 09:22 | MHC.OFFVIS ---
Vital Signs 06/02/24 09:23 Height 6 ft 2 in Weight 185 lb BMI 23.7 BP 106/63 Blood Pressure Location Lt brachial Position Sitting Pulse 75 Intake Visit Reasons: S/P Shedd; Dr. Magallon Intake Note: Patient follow up for Colonoscopy results. Patient denies any GI issues. Generator Technician Required: No Accompanied by: Self / Same As Patient Allergies No Known Allergies [No Known Allergies*] Allergy (Verified 06/02/24 09:22) Medication List - Last Reconciled 06/02/24 by Gunner Magallon MD cholecalciferol (vitamin D3) 2,000 units PO DAILY 30 days ferrous sulfate 325 mg PO DAILY mesalamine 1.2 grams PO QID 90 days ustekinumab (Stelara) mg IV ustekinumab 90 mg subcut Q8W 8 weeks HPI HPI S/P Shedd; Dr. Magallon: Details: GI clinic visit for this 44-year-old male for follow-up of ulcerative colitis and anemia - to review colon results. Patient has been followed by Dr. Matos in the GI clinic since 03/2016? When he presented with new onset bloody diarrhea. ?initial stool culture was positive for toxigenic E coli.? ? Stool studies were negative for C diff toxin He was treated with intermittent antibiotic therapy with persistent diarrhea. IBD serologies were negative. TPMT enzyme activity was normal ?IBD SUMMARY YEAR OF DIAGNOSIS:? 2015 DISEASE EXTENT:? Pancolitis LAST COLONOSCOPY FINDINGS:? 04/2024? - Findings as noted below NEXT COLON DUE: 04/2026 EXTRAINTESTINAL MANIFESTATIONS: Oral thrush when he was sick which has resolved Denies eye pain or skin rash LBP which he attributes to work GI SURGERY:? None PAST TREATMENTS:? Mesalamine 1.2 grams four time a day, Prednisone, Remicade 5 mg/kg every 8 weeks stopped due to high antibody levels CURRENT THERAPY: ?11/11/22 Given loading dose of stelara. Scheduled for maintainence injection on 01/06/23 VACCINATIONS: Flu shot:? has not had a flu shot in a while Hep A/B serology /vaccination:? not vaccinated - (antibodies checked which showed immunity to Hep B and non-immune to Hep A) TB screen: negative TODAY'S VISIT: Patient cc: fatigue on and off. Denies any other GI issues. Stelara injections are working well Taking them every 8 weeks Has 2 BMs a day without blood. PAST VISIT Has 2-3 BMs a day without blood. Abd pain has improved and he has gained 9 lbs over the past 3-4 months. Next injection due on 03/08/23 HE states that on to thursday he had headaches and he is not sure [facility] He states he also had blood in stool thursday and thursday. Noted a MCKNIGHT to Thursday - mostly in the am Has some diarrhea and noted some blood mixed with the stool at the end of a BMs. Having 4 loose to watery BMs a day. Noted lower abd pain at site of hernia surgery yeseterday and non today. Started taking mesalamine on 11/15/22 Having a mini flare up since . Having lower abd pain and having 4+ BMs a day (baseline BM were 3 to 4 per day) Notes abd cramps before a BM and resolves after he has a BM. Had blood one time a few weeks ago - mostly liquid stools. Few episodes of night sweats - no fever or chills. Denies taking any antibiotics recently Last remicade infusion on Jul 02 and next due on Aug 28. Lab results reviewed with the patient. Last Remicade infusion was in 07/16. 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 Sometimes formed and sometime runy without blood Abd pain once in a while. Became very sick in aug, 2020 and lost a lot of weight. Started on remicade and doing better and is gaining some wt back Patient denies symptoms of heartburn, dysphagia, nausea, vomiting, Mild indigestion depneding on the diet. Intermittent abdominal pain related to the hernia. Has 3-4 soft to loose BMs a day - noted a small amount of blood yesterday. Patient denies major cardiac or pulmonary problems, loud snoring or sleep apnea Denies problems with anesthesia in the past. Denies being on chronic anticoagulation. Patient denies known family history of? Paternal uncle has UC, colon polyps, colon cancer or other GI malignancies. 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 No?children IMAGING STUDIES: 10/10/20 ABD PELVIC MRI SHOWED: 1. Mild circumferential wall thickening colon, greatest cecum and ascending colon. Mild hyperenhancement following contrast. No T2 signal in the wall or adjacent mesentery. No focal stenotic segment or obstruction. 2. Small bowel and terminal ileum unremarkable. 3. No ascites or fluid collection. 4. Small hepatic cysts 1.2 cm and under 1 cm, respectively. No steatosis appreciated. [facility] Medical History COVID-19 vaccine series completed Low vitamin D level Iron deficiency anemia Ulcerative colitis Surgical History (Updated 06/02/24 @ 09:25 by Mariel Banda) Hx of right knee surgery H/O colonoscopy Family History Father HTN (hypertension) Mother No problems noted. Paternal Grandfather No problems noted. Paternal Grandmother No problems noted. Maternal Grandfather Gastric ulcer Maternal Grandmother Emphysema of lung Social History Household Members: Spouse Are you a primary child caregiver private home to a significant other at home: No Do you presently have visiting nurse or other home services: No Patient Tobacco Use Status: Never used Tobacco Review of Systems Const All systems reviewed & are unremarkable except as noted in HPI and below Physical Exam Vital Signs: Last Vital Signs Pulse 75 06/02/24 09:23 BP 106/63 06/02/24 09:23 BMI result Body Mass Index 23.7 Const General: no acute distress Nutritional Appearance: average body habitus Orientation/consciousness: patient oriented x3 Limitations: no limitations HEENT Head: Yes normal to inspection Ears: hearing grossly normal bilaterally Mouth: Normal oral and palatal mucosa present Eyes Sclerae: sclerae normal Pupils: Equal, round and reactive pupils present Neck Neck: Yes normal visual inspection Chest Chest palpation & inspection: normal inspection of the chest Resp Effort & Inspection: normal respiratory effort Auscultation: clear to auscultation bilaterally Cardio Palpation: normal PMI Rate: regular rate Rhythm: regular rhythm Heart sounds: S1 normal heart sound present, S2 normal heart sound present and no murmurs GI Palpation (GI): Soft to palpation, nontender and No hepatosplenomegaly present Auscultation: normal bowel sounds Rectal Exam - Male: Yes deferred Skin General skin exam: no rashes or lesions noted Neuro General: patient oriented x3, gait normal and moves all extremities Cranial nerves: Yes Equal, round and reactive pupils present Psych Appearance: grossly normal Mental Status: mental status grossly normal Assessment & Plan Assessment & Plan (1) Ulcerative colitis: Comment: taking mesalamine Code(s): K51.90 - Ulcerative colitis, unspecified, without complications Category: Medical (2) Iron deficiency anemia: Comment: taking iron Code(s): D50.9 - Iron deficiency anemia, unspecified Category: Medical Plan 44 YM with UC (diagnosed in 2016) complicated by ELEANOR and Vitamin D deficiency.? 04/2016? colonoscopy showed severely active ulcerative colitis from 12 cms to 45 to 50 cm. Pt had persistent symptoms despite high dose mesalamine resulting in wt loss of 30 lbs. ? 10/30/20 He was started on Remicade with? improvement in symptoms with slow weight gain and improvement in anemia. Patient was advised to continue treatment with Remicade 5 milligram/kilogram every 8 weeks.? 08/15/22 Pt seen urgently for a mild flare. Has been on Remicade infusion every 8 weeks since 10/30/20 (Getting Remicade infusions at home? for the past few months) Check FU labs,? C Diff toxin - infliximab drug level and anti drug antibodies on 08/25 22 (before his next infliximab infusion). Aug 2022 Infliximab level was 1.3 mcg/ml and Infliximab ADA elevated at 100 AU associated with increased risk of infusion reactions and reduced duration of response Pt was was advised to stop infliximab and started on a prednisone taper starting at 40 mg daily x 4 week Pt started on Stelara and received 390 mg for induction on 11/11/22. He will continue Stelara at 90 mg every 8 weeks and next dose is scheduled on 01/06/23 Pt was advised to resume taking mesalamine and will taper after he is started on maintenance dose of Stelara. 02/26/23 Doing well on Stelara 90 mg every 8 weeks with wt gain and resolution of diarrhea. From UTD:? Infliximab: >=5 microg/mL for luminal disease. Some but not all studies have reported that higher infliximab trough levels were associated with healing of perianal fistula related to Crohn disease, and a trough level of >=0 microg/mL has been suggested for patients with fistulizing disease 11/26/23 Stelara injections are working well Taking them every 8 weeks Has 2 BMs a day without blood. Pt advised to taper off mesalamine by 1 tablet every week over 4 weeks 05/20/24 Colonoscopy showed: Colonoscopy Findings: One small and two medium sized polyps were removed Small hemorrhoids on retroflexed exam. Plan: Pt has a FU appointment on 06/02/[address] Magallon Repeat Colonoscopy in 2 years if polyps are adenomatous and no dysplasia detected on colon biopsies. Above findings were reviewed with the patient and relevant handouts were given and the discharge area. BIOPSIES SHOWED: A. Terminal ileum, biopsy: Small intestinal and ileocolonic mucosa within normal limits. B. Cecum, biopsy: Chronic, mildly active, colitis. C. Colon, ascending, biopsy: Colonic mucosa with crypt disarray; otherwise within normal limits. D. Colon, transverse, biopsy: Colonic mucosa with patchy hyperplastic changes; otherwise within normal limits. E. Colon, descending, biopsy: Focally active colitis. F. Colon, descending, polypectomies: Inflammatory polyps. G. Colon, sigmoid, biopsy: Chronic inactive colitis. H. Rectum, biopsy: Rectal mucosa within normal limits. Comment: No dysplasia is identified. Letter sent advising repeat colon in 2 years and pt placed on colonoscopy recall list. Follow-up appointment in 5 elvia Orders: Orders C Reactive Protein Today D50.9 - Iron deficiency anemia, unspecified, K51.90 - Ulcerative colitis, unspecified, without complications Calprotectin, Fecal Today D50.9 - Iron deficiency anemia, unspecified, K51.90 - Ulcerative colitis, unspecified, without complications Complete Blood Count Auto Diff Today D50.9 - Iron deficiency anemia, unspecified, K51.90 - Ulcerative colitis, unspecified, without complications Comprehensive Met. Panel Today D50.9 - Iron deficiency anemia, unspecified, K51.90 - Ulcerative colitis, unspecified, without complications T Spot TB Today D50.9 - Iron deficiency anemia, unspecified, K51.90 - Ulcerative colitis, unspecified, without complications Coding Level of Care Code Est Pt Level 3 (58702) Diagnoses Ulcerative colitis K51.90 Iron deficiency anemia D50.9 Time Spent (min) 15
[2024-06-02 09:23] VITALS: BP 106/63; PULSE 75; BMI 23.7
== END 2024-06-02 10:34 | disposition home or self-care (01) ==
LOC: HO.HGI 09:07
PROVIDERS: Visit Provider Internal Medicine Gastroenterology
DX: K51.90 Ulcerative colitis, unspecified, without complications (principal); D50.9 Iron deficiency anemia, unspecified
CPT/HCPCS: 99213

== ENCOUNTER → 2024-06-02 09:06 | Outpatient (BNVA) | payer BC, SELFPAY | PROVIDERS: Visit Provider Internal Medicine Gastroenterology ==

== ENCOUNTER 2024-06-13 14:45 | Outpatient (REF) | payer BC, SELFPAY ==
[2024-06-13 14:59] LABS: MANUAL DIFF FLAG NO
[2024-06-13 15:16] LABS: Basophils Percent Auto 0.4 % (0-2); Eosinophils Absolute Auto 0.1 X10*3/uL (0.0-0.4); Eosinophils Percent Auto 1.3 % (0-4); Hematocrit 39.9 % (42.0-52.0); Hemoglobin 13.6 g/dl (14.0-18.0); Imm Gran Abs Auto 0.02 X10*3/uL (0.00-0.03); Imm Gran Pct Auto 0.4 % (0.0-0.4); Lymphocytes Absolute Auto 1.2 X10*3/uL (1.2-4.9); Lymphocytes Percent Auto 25.3 % (20-40); Mean Corpuscular HGB Conc 34.1 g/dl (31.0-36.0); Mean Corpuscular Volume 82.1 fL (80.0-98.0); Mean Platelet Volume 9.8 fL (9.4-12.4); Monocytes Absolute Auto 0.3 X10*3/uL (0.1-1.2); Monocytes Percent Auto 6.8 % (2-11); Neutrophils Percent Auto 65.8 % (45-73); Platelet Count 206 X10*3/uL (160-400); Red Blood Count 4.86 X10*6/uL (4.60-5.80); Red Cell Distribution Width 12.8 % (11.0-16.0); White Blood Count 4.6 X10*3/uL (4.8-10.8)
[2024-06-13 15:44] LABS: Alanine Aminotransferase 25 U/L (0-40); Albumin Level 4.4 g/dL (3.5-5.0); Anion Gap 14 (12-20); Aspartate Amino Transferase 30 U/L (5-37); Bilirubin Total 0.3 mg/dL (0.0-1.0); Blood Urea Nitrogen 17 mg/dL (9-16); C Reactive Protein 2.43 mg/dL (< or = 0.50); Calcium 9.7 mg/dL (8.4-10.2); Carbon Dioxide 25 mmol/L (22-29); Chloride 105 mmol/L (96-108); Estimated Glomerular Filt Rate > 60; Glucose Random 84 mg/dL (60-115); Potassium 3.8 mmol/L (3.3-5.1); Sodium 140 mmol/L (135-145); Total Protein 7.2 g/dL (6.5-8.0)
[2024-06-13 16:13] LABS: Alkaline Phosphatase 82 U/L (39-117)
[2024-06-16 10:04] LABS: TS Negative Control Passed; TS Panel A 0; TS Panel B 1; TS Positive Control Passed; TSpotTB Negative (Negative)
== END 2024-06-13 14:46 | disposition home or self-care (01) ==
LOC: HO.LAB 14:45
PROVIDERS: Visit Provider Internal Medicine Gastroenterology
DX: K51.90 Ulcerative colitis, unspecified, without complications (principal); D50.9 Iron deficiency anemia, unspecified
CPT/HCPCS: 36415; 80053; 85025; 86140; 86481

== ENCOUNTER 2025-03-31 09:46 | Outpatient (REF) | payer BC, SELFPAY ==
[2025-03-31 10:32] LABS: MANUAL DIFF FLAG NO
[2025-03-31 11:02] LABS: Hematocrit 42.1 % (42.0-52.0); Hemoglobin 14.3 g/dl (14.0-18.0); Imm Gran Abs Auto 0.00 X10*3/uL (0.00-0.03); Imm Gran Pct Auto 0.0 % (0.0-0.4); Lymphocytes Absolute Auto 1.1 X10*3/uL (1.2-4.9); Mean Corpuscular HGB Conc 34.0 g/dl (31.0-36.0); Mean Corpuscular Hemoglobin 28.1 pg (27.0-33.0); Mean Corpuscular Volume 82.7 fL (80.0-98.0); NRBC Abs Auto 0.000 X10*3/uL (0.0-0.012); NRBC Pct Auto 0.0 /100WBC (0.0-0.2); Platelet Count 216 X10*3/uL (160-400); Red Blood Count 5.09 X10*6/uL (4.60-5.80); White Blood Count 4.0 X10*3/uL (4.8-10.8)
[2025-03-31 12:00] LABS: Alanine Aminotransferase 21 U/L (0-40); Albumin Level 4.7 g/dL (3.5-5.0); Alkaline Phosphatase 88 U/L (39-117); Anion Gap 12 (12-20); Aspartate Amino Transferase 29 U/L (5-37); Blood Urea Nitrogen 20 mg/dL (9-16); Calcium 9.1 mg/dL (8.4-10.2); Carbon Dioxide 25 mmol/L (22-29); Chloride 106 mmol/L (96-108); Estimated Glomerular Filt Rate > 60; Potassium 4.0 mmol/L (3.3-5.1); Sodium 139 mmol/L (135-145); Total Protein 7.2 g/dL (6.5-8.0)
[2025-03-31 12:09] LABS: Folate 10.5 ng/mL (> or = 4.0); Vitamin B12 588 pg/mL (200-900)
== END 2025-03-31 09:47 | disposition home or self-care (01) ==
LOC: HO.LAB 09:46
PROVIDERS: Visit Provider Internal Medicine Gastroenterology
DX: D50.9 Iron deficiency anemia, unspecified (principal); K51.90 Ulcerative colitis, unspecified, without complications; K40.90 Unilateral inguinal hernia, without obstruction or gangrene, not specified as recurrent; R13.14 Dysphagia, pharyngoesophageal phase; Z79.899 Other long term (current) drug therapy
CPT/HCPCS: 36415; 80053; 80299; 82306; 82542; 82607; 82746; 85025; 86140; 86481

== ENCOUNTER 2025-03-31 09:46 | Outpatient (AMB) | payer BC, SELFPAY ==
[2025-03-31 09:50] VITALS: BP 103/50; PULSE 80; O2SAT 98
--- NOTE | 2025-03-31 09:50 | A.OFFVIS_ITS ---
Vital Signs 03/31/25 09:50 Weight 185 lb BP 103/50 L Blood Pressure Location Lt brachial Position Sitting Pulse 80 Pulse Oximetry (%) 98 Oxygen Delivery Method Room Air Intake Visit Reasons: Iron deficiency Intake Note: Patient follow up Iron deficiency anemia and lab/fecal results. Patient cc: dry mouth on and off. Mine Surveyor Required: No Accompanied by: Self / Same As Patient Allergies No Known Allergies (No Known Allergies*) Allergy (Verified 03/31/25 09:48) Medication List - Last Reconciled 03/31/25 by Gunner Magallon MD cholecalciferol (vitamin D3) 2,000 units PO DAILY 30 days ferrous sulfate 325 mg PO DAILY mesalamine (Lialda) 2.4 grams PO DAILY ustekinumab (Stelara) 90 mg subcut Q8W HPI HPI Iron deficiency: Details: GI clinic visit for this 44-year-old male for follow-up of ulcerative colitis and anemia - to review colon results. ?IBD SUMMARY YEAR OF DIAGNOSIS:? 2015 Patient has been followed by Dr. Matos in the GI clinic since 03/2016? When he presented with new onset bloody diarrhea. ?initial stool culture was positive for toxigenic E coli.? ? Stool studies were negative for C diff toxin He was treated with intermittent antibiotic therapy with persistent diarrhea. IBD serologies were negative. TPMT enzyme activity was normal DISEASE EXTENT:? Pancolitis LAST COLONOSCOPY FINDINGS:? 04/2024? - Findings as noted below NEXT COLON DUE: 04/2026 EXTRAINTESTINAL MANIFESTATIONS: Oral thrush when he was sick which has resolved Denies eye pain or skin rash LBP which he attributes to work GI SURGERY:? None PAST TREATMENTS:? Mesalamine 1.2 grams four time a day, Prednisone, Remicade 5 mg/kg every 8 weeks stopped due to high antibody levels CURRENT THERAPY: ?11/11/22 Given loading dose of stelara. Scheduled for maintainence injection on 01/06/23 VACCINATIONS: Flu shot:? has not had a flu shot in a while Hep A/B serology /vaccination:? not vaccinated - (antibodies checked which showed immunity to Hep B and non-immune to Hep A) TB screen: negative TODAY'S VISIT: Patient cc: Patient cc: dry mouth on and off. Stelara injections are working well Taking them every 8 weeks Has a BM twice a day - occasional diarrhea with urgency depending on diet Has 2 BMs a day without blood. Notes dry mouth and solid and dry foods can get stuck on the left side of the throat intermittently Drinks water and food goes down. 's nephew moved in with them and attending [facility] PAST VISIT Has 2-3 BMs a day without blood. Abd pain has improved and he has gained 9 lbs over the past 3-4 months. Next injection due on 03/08/23 HE states that on to thursday he had headaches and he is not sure if it is from the stelara. He states he also had blood in stool thursday and thursday. Noted a MCKNIGHT to Thursday - mostly in the am Has some diarrhea and noted some blood mixed with the stool at the end of a BMs. Having 4 loose to watery BMs a day. Noted lower abd pain at site of hernia surgery yeseterday and non today. Started taking mesalamine on 11/15/22 Having a mini flare up since . Having lower abd pain and having 4+ BMs a day (baseline BM were 3 to 4 per day) Notes abd cramps before a BM and resolves after he has a BM. Had blood one time a few weeks ago - mostly liquid stools. Few episodes of night sweats - no fever or chills. Denies taking any antibiotics recently Last remicade infusion on Jul 02 and next due on Aug 28. Lab results reviewed with the patient. Last Remicade infusion was in 07/16. 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 Sometimes formed and sometime runy without blood Abd pain once in a while. Became very sick in aug, 2020 and lost a lot of weight. Started on remicade and doing better and is gaining some wt back Patient denies symptoms of heartburn, dysphagia, nausea, vomiting, Mild indigestion depneding on the diet. Intermittent abdominal pain related to the hernia. Has 3-4 soft to loose BMs a day - noted a small amount of blood yesterday. Patient denies major cardiac or pulmonary problems, loud snoring or sleep apnea Denies problems with anesthesia in the past. Denies being on chronic anticoagulation. Patient denies known family history of? Paternal uncle has UC, colon polyps, colon cancer or other GI malignancies. 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 No?children IMAGING STUDIES: 10/10/20 ABD PELVIC MRI SHOWED: 1. Mild circumferential wall thickening colon, greatest cecum and ascending colon. Mild hyperenhancement following contrast. No T2 signal in the wall or adjacent mesentery. No focal stenotic segment or obstruction. 2. Small bowel and terminal ileum unremarkable. 3. No ascites or fluid collection. 4. Small hepatic cysts 1.2 cm and under 1 cm, respectively. No steatosis appreciated [facility] Medical History (Updated 03/31/25 @ 10:13 by Gunner Magallon MD) COVID-19 vaccine series completed Low vitamin D level Iron deficiency anemia Ulcerative colitis Surgical History (Updated 06/02/24 @ 09:25 by Mariel Banda) Hx of right knee surgery H/O colonoscopy Family History Father HTN (hypertension) Mother No problems noted. Paternal Grandfather No problems noted. Paternal Grandmother No problems noted. Maternal Grandfather Gastric ulcer Maternal Grandmother Emphysema of lung Social History Household Members: Spouse Are you a primary care information associate to a significant other at home: No Do you presently have visiting nurse or other home services: No Patient Tobacco Use Status: Never used Tobacco Review of Systems Const Denies fever(s), Denies headache(s) and Denies weight loss Eyes Denies eye discharge and Denies irritation ENT Reports Normal hearing present, Reports dysphagia, Denies dizziness and Denies headache(s) Card Denies chest pain, Denies leg edema and Denies dyspnea on exertion Resp Denies cough, Denies dyspnea on exertion and Denies wheezing GI Denies abdominal pain, Reports bloating, Denies change in bowel habits, Reports dysphagia and Denies heartburn Denies dysuria Musc Denies back pain and Denies arthralgias Skin/Breast Denies pruritus, Denies rash and Denies jaundice Neuro Reports Normal hearing present, Denies Abnormal speech present, Denies dizziness, Denies headache(s) and Denies seizure-like activity Psych Denies anxiety, Denies depression and Denies panic attacks Endo Denies cold intolerance, Denies flushing and Denies heat intolerance Darian/Lymph Denies easy bleeding and Denies easy bruising Aller/Immun Denies wheezing Physical Exam Vital Signs: Last Vital Signs Pulse 80 03/31/25 09:50 BP 103/50 L 03/31/25 09:50 Pulse Ox 98 03/31/25 09:50 Oxygen Delivery Method Room Air 03/31/25 09:50 Const General: no acute distress Nutritional Appearance: average body habitus Orientation/consciousness: patient oriented x3 Limitations: no limitations HEENT Head: Yes normal to inspection Ears: hearing grossly normal bilaterally Mouth: Normal oral and palatal mucosa present Eyes Sclerae: sclerae normal Pupils: Equal, round and reactive pupils present Neck Neck: Yes normal visual inspection Chest Chest palpation & inspection: normal inspection of the chest Resp Effort & Inspection: normal respiratory effort Auscultation: clear to auscultation bilaterally Cardio Palpation: normal PMI Rate: regular rate Rhythm: regular rhythm Heart sounds: S1 normal heart sound present, S2 normal heart sound present and no murmurs GI Palpation (GI): Soft to palpation, nontender and No hepatosplenomegaly present Auscultation: normal bowel sounds Rectal Exam - Male: Yes deferred Skin General skin exam: no rashes or lesions noted Neuro General: patient oriented x3, gait normal and moves all extremities Cranial nerves: Yes Equal, round and reactive pupils present and Yes Normal hearing present Speech: No Abnormal speech present Psych Appearance: grossly normal Mental Status: mental status grossly normal Assessment & Plan Assessment & Plan (1) Ulcerative colitis: Comment: taking mesalamine Code(s): K51.90 - Ulcerative colitis, unspecified, without complications Category: Medical (2) Left inguinal hernia: Code(s): K40.90 - Unilateral inguinal hernia, without obstruction or gangrene, not specified as recurrent Category: Medical (3) Dysphagia, pharyngoesophageal phase: Code(s): R13.14 - Dysphagia, pharyngoesophageal phase Category: Medical Plan 44 YM with UC (diagnosed in 2015) complicated by ELEANOR and Vitamin D deficiency.? 04/2016? colonoscopy showed severely active ulcerative colitis from 12 cms to 45 to 50 cm. Pt had persistent symptoms despite high dose mesalamine resulting in wt loss of 30 lbs. ? 10/30/20 He was started on Remicade with? improvement in symptoms with slow weight gain and improvement in anemia. Patient was advised to continue treatment with Remicade 5 milligram/kilogram every 8 weeks.? 08/15/22 Pt seen urgently for a mild flare. Has been on Remicade infusion every 8 weeks since 10/30/20 (Getting Remicade infusions at home? for the past few months) Check FU labs,? C Diff toxin - infliximab drug level and anti drug antibodies on 08/25 22 (before his next infliximab infusion). Aug 2022 Infliximab level was 1.3 mcg/ml and Infliximab ADA elevated at 100 AU associated with increased risk of infusion reactions and reduced duration of response Pt was was advised to stop infliximab and started on a prednisone taper starting at 40 mg daily x 4 week Pt started on Stelara and received 390 mg for induction on 11/11/22. He will continue Stelara at 90 mg every 8 weeks and next dose is scheduled on 01/06/23 Pt was advised to resume taking mesalamine and will taper after he is started on maintenance dose of Stelara. 02/26/23 Doing well on Stelara 90 mg every 8 weeks with wt gain and resolution of diarrhea. From UTD:? Infliximab: >=5 microg/mL for luminal disease. Some but not all studies have reported that higher infliximab trough levels were associated with healing of perianal fistula related to Crohn disease, and a trough level of >=0 microg/mL has been suggested for patients with fistulizing disease 11/26/23 Stelara injections are working well Taking them every 8 weeks Has 2 BMs a day without blood. Pt advised to taper off mesalamine by 1 tablet every week over 4 weeks 05/20/24 Colonoscopy showed: Colonoscopy Findings: One small and two medium sized polyps were removed Small hemorrhoids on retroflexed exam. Plan: Repeat Colonoscopy in 2 years if polyps are adenomatous and no dysplasia detected on colon biopsies. Above findings were reviewed with the patient and relevant handouts were given and the discharge area. BIOPSIES SHOWED: A. Terminal ileum, biopsy: Small intestinal and ileocolonic mucosa within normal limits. B. Cecum, biopsy: Chronic, mildly active, colitis. C. Colon, ascending, biopsy: Colonic mucosa with crypt disarray; otherwise within normal limits. D. Colon, transverse, biopsy: Colonic mucosa with patchy hyperplastic changes; otherwise within normal limits. E. Colon, descending, biopsy: Focally active colitis. F. Colon, descending, polypectomies: Inflammatory polyps. G. Colon, sigmoid, biopsy: Chronic inactive colitis. H. Rectum, biopsy: Rectal mucosa within normal limits. Comment: No dysplasia is identified. Letter sent advising repeat colon in 2 years and pt placed on colonoscopy recall list. 03/31/25 Schedule barium swallow for evaluation of dysphagia Follow-up appointment in 6 months Orders: Orders Complete Blood Count Auto Diff Today K51.90 - Ulcerative colitis, unspecified, without complications Comprehensive Met. Panel Today K51.90 - Ulcerative colitis, unspecified, without complications T Spot TB Today K51.90 - Ulcerative colitis, unspecified, without complications Vitamin B12 and Folate Today K51.90 - Ulcerative colitis, unspecified, without complications FL barium swallow Today R13.14 - Dysphagia, pharyngoesophageal phase [employer] Anser UST Today K51.90 - Ulcerative colitis, unspecified, without complications C Reactive Protein Today K51.90 - Ulcerative colitis, unspecified, without complications Vitamin D 25-OH Total Today K51.90 - Ulcerative colitis, unspecified, without complications Coding Level of Care Code Est Pt Level 4 (09358) Diagnoses Ulcerative colitis K51.90 Left inguinal hernia K40.90 Dysphagia, pharyngoesophageal phase R13.14 Time Spent (min) 21
--- OUTSIDE RECORDS SUMMARY | 2025-03-31 10:32 | XMS_ITS | Clinical Summary ---
[facility] Organization [facility] Address [address] [place] [address] Care Team Providers Care Healthcare Receptionist Name Role Phone Kamilah Novak MD Primary Care Provider Social History Tobacco Use Types Packs/Day Years Used Date Smoking Tobacco: Never Assessed Sex and Gender Information Value Date Recorded Sex Assigned at Not on file Legal Sex Male 4:10 PM EST Gender Identity Not on file Sexual Orientation Not on file Plan of Treatment Health Maintenance Due Date Last Done Comments DTaP,Tdap,and Td Vaccines (1 - Tdap) 2000 Hepatitis B Vaccines (1 of 3 - 19+ 3-dose series) 2000 Depression Screening 07/27/2024 COVID-19 Vaccine ( - 2023-2 5 season) 2025 Influenza Vaccine (#1) 2025 HIB Vaccines Aged Out No longer eligi ble based on patient's age to complete this topic HPV Vaccines Aged Out No longer eligi ble based on patient's age to complete this topic Hepatitis A Vaccines Aged Out No long er eligible based on patient's age to complete this topic IPV Vaccines Aged Out No longer eligi ble based on patient's age to complete this topic MMR Vaccines Aged Out No longer eligi ble based on patient's age to complete this topic Meningococcal ACWY Vaccine Aged Out N o longer eligible based on patient's age to complete this topic Meningococcal B Vaccine Aged Out No l onger eligible based on patient's age to complete this topic Pneumococcal Vaccine: Pediat rics (0 to 5 Years) and At-Risk Patients (6 to 49 Years) Aged Out No longer eligible b ased on patient's age to complete this topic RSV Immunization Patients Un lio 20 months Aged Out No longer eligible b ased on patient's age to complete this topic Varicella Vaccines Aged Out No longer eligible based on patient's age to complete this topic Care Teams Healthcare Receptionist Relationship Specialty Start Date End Date Kamilah Novak MD [address] [place] [address] PCP - General Internal Medicine 03/25/18
== END 2025-03-31 10:15 | disposition home or self-care (01) ==
LOC: HO.HGI 09:46
PROVIDERS: Visit Provider Internal Medicine Gastroenterology
DX: K51.90 Ulcerative colitis, unspecified, without complications (principal); K40.90 Unilateral inguinal hernia, without obstruction or gangrene, not specified as recurrent; R13.14 Dysphagia, pharyngoesophageal phase
CPT/HCPCS: 99214

== ENCOUNTER 2025-04-13 13:57 | Outpatient (REF) | payer BC, SELFPAY ==
--- OUTSIDE RECORDS SUMMARY | 2025-04-13 15:59 | XMS_ITS | Clinical Summary ---
Author Organization [facility] Address [address] [place] [address] Care Team Providers Care Fitter Placer Name Role Phone Kamilah Novak MD Primary [...] age to complete this topic Care Teams Fitter Placer Relationship Specialty Start Date End Date Kamilah Novak MD [address] [place] [address] PCP - General Internal Medicine 03/25/18
[2025-04-18 03:08] LABS: TS Negative Control Passed; TS Panel A 0; TS Panel B 0; TS Positive Control Passed; TSpotTB Negative (Negative)
== END 2025-04-13 13:58 | disposition home or self-care (01) ==
LOC: HO.LAB 13:57
PROVIDERS: Visit Provider Internal Medicine Gastroenterology
DX: Z11.1 Encounter for screening for respiratory tuberculosis (principal); K51.90 Ulcerative colitis, unspecified, without complications
CPT/HCPCS: 36415; 86481

== ENCOUNTER 2025-04-18 15:52 | Outpatient (REF) | payer BC, SELFPAY ==
--- OUTSIDE RECORDS SUMMARY | 2025-04-18 18:28 | XMS_ITS | Clinical Summary ---
[facility] Organization [facility] Address [address] [place] [address] Care Team Providers Care Hand Umbrella Tipper Name Role Phone Kamilah Novak MD Primary [...] age to complete this topic Care Teams Hand Umbrella Tipper Relationship Specialty Start Date End Date Kamilah Novak MD [address] [place] [address] PCP - General Internal Medicine 03/25/18
[2025-04-23 20:39] LABS: Calprotectin, Fecal 34 mcg/g
== END 2025-04-18 15:53 | disposition home or self-care (01) ==
LOC: HO.LNP 15:52
PROVIDERS: Visit Provider Internal Medicine Gastroenterology
DX: K51.90 Ulcerative colitis, unspecified, without complications (principal)
CPT/HCPCS: 83993